=== PATIENT | female | born 1980 | race Caucasian/White ===

== ENCOUNTER 2016-06-26 16:38 | Emergency (ER) | payer BC ==
[2016-06-26] MEDS ORDERED: KETOROLAC TROMETHAMINE 30 MG/1 ML VIAL IVPUSH ONE ×2 (16:45→19:18)
[2016-06-26] MEDS ORDERED: SODIUM CHLORIDE 1,000 ML IV STA (16:45)
--- NOTE | 2016-06-26 16:45 | PDOC ---
Rapid Medical Evaluation Time Seen by Provider: 06/26/16 16:44 Medical Evaluation: Allergies Allergy/AdvReac Type Severity Reaction Status Date / Time No Known Allergies Allergy Verified 06/26/16 16:43 06/26/16 16:53 36 year old female with history of kidney stones (last summer 2015, doesnt recall passing that stone, s/p lithotripsy 1999) presents with 3 days of worsening left flank pain. Appears very uncomfortable. Left CVA tenderness to gentle palpation. -UA/culture/urine -Basic labs -Toradol 30mg IVP, IVF -To Main ED for further evaluation
[2016-06-26 16:47] VITALS: TEMP 98.1; BMI 26.0
[2016-06-26] MEDS ORDERED: KETOROLAC TROMETHAMINE 30 MG/1 ML VIAL ONE (17:11)
[2016-06-26 17:25] LABS: BASOPHIL 0.9 % (0-2.0); EOSINOPHIL 1.9 % (0-4.5); MCH 28.4 pg (25.7-33.7); MCHC 33.4 g/dl (32.0-36.0); MEAN PLT VOLUME 8.5 fl (7.5-11.1); NEUTROPHILS 52.4 % (42.8-82.8); PLATELET COUNT 272 K/MM3 (134-434); RDW 13.9 % (11.6-15.6); WHITE BLOOD COUNT 8.2 K/mm3 (4.0-10.0)
[2016-06-26 17:32] LABS: URINE APPEARANCE CLEAR; URINE BILIRUBIN NEGATIVE (NEGATIVE); URINE BLOOD NEGATIVE (NEGATIVE); URINE COLOR YELLOW; URINE GLUCOSE (UA) NEGATIVE (NEGATIVE); URINE KETONE NEGATIVE (NEGATIVE); URINE NITRITE NEGATIVE (NEGATIVE); URINE PROTEIN NEGATIVE (NEGATIVE); URINE UROBILINOGEN 2.0 E.U/dl E.U./dl (0.2-1.0)
[2016-06-26 17:34] LABS: URINE LEUK ESTERASE TRACE (NEGATIVE)
[2016-06-26 17:48] LABS: CALCIUM OXALATE CRYSTALS RARE /hpf (NONE SEEN); URINE MUCUS RARE; URINE RBC 9 /hpf (0-3); URINE WBC 7 /hpf (3-5)
[2016-06-26 17:51] LABS: ALBUMIN 3.5 g/dl (3.4-5.0); ALK PHOS 58 U/L (45-117); ANION GAP 8 (8-16); BILIRUBIN,TOTAL 0.5 mg/dL (0.2-1.0); CALCIUM 8.5 mg/dL (8.5-10.1); CO2 27 mmol/L (21-32); CREATININE 0.7 mg/dL (0.55-1.02); GLUCOSE,RANDOM 85 mg/dL (74-106); SGOT/AST 14 U/L (15-37); SGPT/ALT 15 U/L (12-78)
--- NOTE | 2016-06-26 17:55 | PDOC ---
History of Present Illness - General Chief Complaint: Pain Stated Complaint: BACK PAIN Time Seen by Provider: 06/26/16 16:44 History Source: Patient Exam Limitations: No Limitations - History of Present Illness Travel History: No Initial Comments: 06/26/16 17:45 36-year-old female with history of kidney stones presents to the ED with complaints of left flank and left back pain worsening since yesterday now associated with urinary frequency and dark urine. Patient denies irregular menses, recent UTI, abdominal distention, fever or chills. Patient states does not recall the recent urology she followed up with numerous years ago but has never received any surgical intervention. Timing/Duration: reports: getting worse Quality: reports: moderate, sharpness, stabbing Abdominal Pain Onset Location: reports: flank (left) Pain Radiation: reports: no radiation Aggravating Factors: improves with: Voiding Alleviating Factors: improves with: None Past History - Past Medical History Allergies/Adverse Reactions: Allergies Allergy/AdvReac Type Severity Reaction Status Date / Time clindamycin Allergy Verified 06/26/16 17:39 Home Medications: Ambulatory Orders Albuterol Sulfate Inhaler - [Ventolin HFA Inhaler -] 1 - 2 inh IH PRN PRN Budesonide/Formeterol Fumarate [SYMBICORT 80/4.5mcg -] 1 inh PO BID #1 cannister 08/08/15 Tamsulosin HCl [Flomax] 0.4 mg PO DAILY #7 cap.er.24h 06/26/16 Asthma: Yes Kidney Stones: Yes - Reproductive History LMP Normal: Yes Is Patient Now?: No - Immunization History Immunization Up to Date: Yes - Psycho/Social/Smoking Cessation Hx Anxiety: No Suicidal Ideation: No Smoking Status: No Smoking History: Former smoker Have you smoked in the past 12 months: Yes Number of Cigarettes Smoked Daily: 3 If you are a former smoker, when did you quit?: 3 months ago Information on smoking cessation initiated: No Hx Alcohol Use: No Drug/Substance Use Hx: No Substance Use Type: None Patient Lives Alone: No Lives with/in: spouse/SO Review of Systems - Review of Systems Able to Perform ROS?: Yes Constitutional: No: Chills, Fever HEENTM: No: Symptoms Reported Respiratory: No: Symptoms reported Cardiac (ROS): No: Symptoms Reported ABD/GI: No: Constipated, Diarrhea, Nausea, Vomiting : No: Symptoms Reported Musculoskeletal: No: Symptoms Reported Integumentary: No: Symptoms Reported Neurological: No: Symptoms reported Endocrine: No: Symptoms Reported Hematologic/Lymphatic: No: Symptoms Reported *Physical Exam - Vital Signs Last Vital Signs Temp Pulse Resp BP Pulse Ox 98.1 F 85 20 129/75 100 06/26/16 16:44 06/26/16 16:44 06/26/16 16:44 06/26/16 16:44 06/26/16 16:44 - Physical Exam General Appearance: Yes: Nourished, Appropriately Dressed. No: Apparent Distress HEENT: positive: EOMI, YAIR. negative: Pale Conjunctivae Neck: positive: Supple Respiratory/Chest: positive: Lungs Clear, Normal Breath Sounds. negative: Respiratory Distress, Accessory Muscle Use Cardiovascular: positive: Regular Rhythm, Regular Rate. negative: Murmur Gastrointestinal/Abdominal: positive: Soft. negative: Tenderness Musculoskeletal: positive: CVA Tenderness (L) Extremity: positive: Normal Capillary Refill. negative: Pedal Edema Integumentary: positive: Normal Color, Warm, Moist Neurologic: positive: Motor Strength 5/5 ED Treatment Course - LABORATORY CBC & Chemistry Diagram: 06/26/16 16:30 06/26/16 16:30 - ADDITIONAL ORDERS Additional order review: Laboratory Results 06/26/16 16:45 Urine Color Yellow Urine Appearance Clear Urine pH 6.0 Ur Specific [place] 1.021 Urine Protein Negative Urine Glucose (UA) Negative Urine Ketones Negative Urine Blood Negative Urine Nitrite Negative Urine Bilirubin Negative Urine Urobilinogen 2.0 e.u/dl H Ur Leukocyte Esterase Trace H Urine HCG, Qual Negative 06/26/16 16:30 RBC 4.63 MCV 85.0 MCHC 33.4 RDW 13.9 MPV 8.5 Neutrophils % 52.4 D Lymphocytes % 31.7 D Monocytes % 13.1 H Eosinophils % 1.9 D Basophils % 0.9 - RADIOLOGY Radiology Studies Ordered: Category Date Time Status KIDNEY / RENAL US [US] Stat Ultrasound 06/26/16 17:43 Ordered - Medications Given in the ED: ED Medications Discontinued Medications Generic Name Dose Route Start Last Admin Trade Name Freq PRN Reason Stop Dose Admin Sodium Chloride 1,000 mls @ 1,000 mls/hr 06/26/16 16:45 06/26/16 17:10 Normal Saline - IV 06/26/16 17:44 1,000 mls/hr ASDIR STA Administration Ketorolac Tromethamine 30 mg 06/26/16 16:45 06/26/16 17:10 Toradol Injection - IVPUSH 06/26/16 16:46 30 mg ONCE ONE Administration Medical Decision Making - Medical Decision Making 06/26/16 17:56 Patient with history of kidney stones presents with urinary frequency, dark urine, and left flank pain. Patient Had CVA tenderness. Patient ordered for labs , urine and IV fluids. Patient also ordered for kidney ultrasound since had her last CT done done in 2014. 06/26/16 18:30 Laboratory Tests 06/26/16 06/26/16 06/26/16 16:30 16:30 16:45 WBC 8.2 Hgb 13.1 Hct 39.4 Plt Count 272 Neutrophils % 52.4 D Sodium 139 Potassium 3.7 Chloride 104 Carbon Dioxide 27 Anion Gap 8 BUN 11 D Random Glucose 85 AST 14 L D ALT 15 Urine Ketones Negative Urine Blood Negative Urine Nitrite Negative Urine Urobilinogen 2.0 e.u/dl H Ur Leukocyte Esterase Trace H Urine RBC 9 Urine WBC 7 06/26/16 19:08 Ultrasound shows multiple bilateral nonobstructing renal calculi. Kidneys otherwise are unremarkable. Patient be discharged home to follow-up with her urologist and PCP. Patient also will be given prescription for Flomax. Urine culture sent. *DC/Admit/Observation/Transfer Diagnosis at time of Disposition: Renal calculi - Discharge Dispostion Disposition: HOME Condition at time of disposition: Improved - Prescriptions Prescriptions: Tamsulosin HCl [Flomax] 0.4 mg PO DAILY #7 cap.er.24h - Referrals Referrals: Toney Centeno MD [Staff Physician] - - Patient Instructions Printed Discharge Instructions: DI for Kidney Stones Additional Instructions: Please take Flomax as prescribed and drink plenty of fluids. Please follow-up with referred urologist and return to ED if symptoms worsen.
[2016-06-26 19:23] VITALS: BP 125/80; PULSE 73
== END 2016-06-26 19:24 | disposition home or self-care (01) ==
LOC: JER 16:38
PROC: 3E0333Z Introduction of Anti-inflammatory into Peripheral Vein, Percutaneous Approach (ICD-10-PCS; principal; 2016-06-26)
PROC: 3E0337Z Introduction of Electrolytic and Water Balance Substance into Peripheral Vein, Percutaneous Approach (ICD-10-PCS; 2016-06-26)
DX: N23 Unspecified renal colic (principal); Z87.442 Personal history of urinary calculi; J45.909 Unspecified asthma, uncomplicated; Z87.891 Personal history of nicotine dependence
CPT/HCPCS: 36415; 76775-TC; 80053; 81003; 81015; 84703; 85025; 87086; 99283-25

== ENCOUNTER 2017-05-20 17:48 | Emergency (ER) | payer BC ==
[2017-05-20 17:56] VITALS: BP 115/68; PULSE 84; TEMP 98; BMI 28.5
--- NOTE | 2017-05-20 17:56 | PDOC ---
Rapid Medical Evaluation Time Seen by Provider: 05/20/17 17:54 Medical Evaluation: Allergies Allergy/AdvReac Type Severity Reaction Status Date / Time clindamycin Allergy Verified 06/26/16 17:39 05/20/17 17:54 The patient presents with a chief complaint of: [Back pain, blood in the urine, h/o kidney stones. ] I have performed a brief in-person evaluation of this patient. Pertinent physical exam findings: vss, [Left CVA tenderness. ] I have ordered the following: [UA, UC, Urine preg] The patient will proceed to the ED for further evaluation. Discharge Disposition - Diagnosis Hematuria, Back pain - Referrals - Patient Instructions - Post Discharge Activity
[2017-05-20] MEDS ORDERED: TAMSULOSIN HCL 0.4 MG CAP.ER.24H (FP) PO ONE (18:26)
[2017-05-20] MEDS ORDERED: KETOROLAC TROMETHAMINE 30 MG/1 ML VIAL IVPUSH ONE (18:26)
[2017-05-20] MEDS ORDERED: SODIUM CHLORIDE 1,000 ML IV STA (18:27)
[2017-05-20] MEDS ORDERED: TAMSULOSIN HCL 0.4 MG CAP.ER.24H (FP) ONE (18:29)
[2017-05-20] MEDS ORDERED: KETOROLAC TROMETHAMINE 30 MG/1 ML VIAL ONE (18:29)
[2017-05-20 18:31] LABS: URINE APPEARANCE SLCLOUDY; URINE BILIRUBIN NEGATIVE (NEGATIVE); URINE BLOOD 3+ (NEGATIVE); URINE COLOR RED; URINE GLUCOSE (UA) NEGATIVE (NEGATIVE); URINE KETONE NEGATIVE (NEGATIVE); URINE LEUK ESTERASE NEGATIVE (NEGATIVE); URINE NITRITE NEGATIVE (NEGATIVE); URINE UROBILINOGEN NEGATIVE mg/dL (0.2-1.0)
[2017-05-20] MEDS ORDERED: ONDANSETRON 4 MG/2 ML VIAL ONE (18:34)
[2017-05-20 18:36] LABS: HCG,QUALITATIVE URINE NEGATIVE; URINE PROTEIN 1+ (NEGATIVE)
[2017-05-20 18:49] LABS: EPI CELLS RARE /HPF (FEW); URINE BACTERIA RARE /hpf (NONE SEEN); URINE MUCUS RARE
[2017-05-20 18:55] LABS: BASO % 0.6 % (0-2.0); EOS % 1.2 % (0-4.5); HEMATOCRIT 39.4 % (32.4-45.2); HEMOGLOBIN 13.1 GM/dL (10.7-15.3); LYMPH % 51.5 % (8-40); MCHC 33.3 g/dl (32.0-36.0); MEAN CELL VOLUME 84.1 fl (80-96); MEAN PLT VOLUME 8.5 fl (7.5-11.1); MONO % 16.4 % (3.8-10.2); NEUT % 30.3 % (42.8-82.8); PLATELET COUNT 269 K/MM3 (134-434); RBC 4.69 M/mm3 (3.60-5.2); RDW 13.8 % (11.6-15.6)
--- NOTE | 2017-05-20 19:15 | PDOC ---
History of Present Illness - General History Source: Patient Exam Limitations: No Limitations - History of Present Illness Initial Comments: 05/20/17 19:15 The patient is a 36 year old female, with a significant past medical history of kidney stones(history of Lithotri[place] [address] Grant), who presents to the emergency department with left flank pain and blood in the urine since yesterday afternoon. Patient reports her pain is localized to the left flank and is nonradiating in nature. She reports her pain is exacerbated with movement. This morning, the patients reports associated nausea but denies any vomiting, diarrhea, or constipation. She denies any dysuria, frequency, or urgency. While at work at [employer] office, patient reports one episode of hematuria. Patient reports telling MALTER OPERATOR Dippan her symptoms, who recommended the patient have an US in the office. US preliminary results suggested a 6mm stone, with partial hydronephrosis. Patient denies any fever or chills. She denies any recent travel or sick contacts. Allergies: Clindamycin Past Surgical History: Lithotripsy(1999) Social History: Non smoker. No ETOH or recreational drug use. <Ne Tee - Last Filed: 05/20/17 21:22> <Ivanna Alegre - Last Filed: 05/20/17 23:47> - General Chief Complaint: Pain, Acute Stated Complaint: PAIN Time Seen by Provider: 05/20/17 17:54 Past History <Ne Tee - Last Filed: 05/20/17 21:22> - Past Medical History Asthma: Yes COPD: No Kidney Stones: Yes - Immunization History Immunization Up to Date: Yes - Suicide/Smoking/Psychosocial Hx Smoking Status: No Smoking History: Never smoked Have you smoked in the past 12 months: Yes Number of Cigarettes Smoked Daily: 3 If you are a former smoker, when did you quit?: 3 months ago Information on smoking cessation initiated: No Hx Alcohol Use: No Drug/Substance Use Hx: No Substance Use Type: None <Ivanna Alegre - Last Filed: 05/20/17 23:47> - Past Medical History Allergies/Adverse Reactions: Allergies Allergy/AdvReac Type Severity Reaction Status Date / Time clindamycin Allergy Verified 05/20/17 17:56 Home Medications: Ambulatory Orders Albuterol Sulfate Inhaler - [Ventolin HFA Inhaler -] 1 - 2 inh IH PRN PRN Budesonide/Formeterol Fumarate [SYMBICORT 80/4.5mcg -] 1 inh PO BID #1 cannister 08/08/15 Ketorolac Tromethamine [Toradol] 10 mg PO Q6H #12 tablet 05/20/17 Moxifloxacin HCl 400 mg PO DAILY 05/20/17 Prednisone 10 mg PO DAILY 05/20/17 Sulfamethoxazole/Trimethoprim [Bactrim Ds -] 1 tab PO BID #10 tablet 05/20/17 Tamsulosin HCl [Flomax] 0.4 mg PO DAILY #7 capsule 05/20/17 Review of Systems - Review of Systems Able to Perform ROS?: Yes Comments:: 05/20/17 19:15 CONSTITUTIONAL: Absent: fever, no chills, no fatigue EYES: Absent: visual changes ENT: Absent: ear pain, no sore throat CARDIOVASCULAR: Absent: chest pain, no palpitations RESPIRATORY: Absent: cough, no SOB GI: Present: Nausea Absent: abdominal pain, no vomiting, no constipation, no diarrhea GENITOURINARY: Present: dysuria Absent: no frequency, no hematuria MUSKULOSKELETAL: Present: Left flank pain Absent: no arthralgia, no myalgia SKIN: Absent: rash NEURO: Absent: headache <Tee,Giomilsy - Last Filed: 05/20/17 21:22> *Physical Exam - Vital Signs Last Vital Signs Temp Pulse Resp BP Pulse Ox 98.0 F 84 18 115/68 98 05/20/17 17:53 05/20/17 17:53 05/20/17 17:53 05/20/17 17:53 05/20/17 17:53 - Physical Exam Comments: 05/20/17 19:15 GENERAL: Well-appearing, well-nourished. Mild apparent distress. HEENT: Normocephalic, atraumatic. PERRL, EOM intact. CARDIOVASCULAR: Normal S1, S2. Regular rate and rhythm. PULMONARY: Clear to auscultation bilaterally. ABDOMEN: Soft, non-distended, non-tender. BACK: +Left CVA tenderness. No right CVA tenderness. No midline tenderness. EXTREMITIES: Normal ROM in all four extremities. No gross deformities. SKIN: Warm, dry. No rash NEUROLOGICAL: No focal neurological deficits. <Ne Tee - Last Filed: 05/20/17 21:22> - Vital Signs Last Vital Signs Temp Pulse Resp BP Pulse Ox 98.0 F 84 18 115/68 98 05/20/17 17:53 05/20/17 17:53 05/20/17 17:53 05/20/17 17:53 05/20/17 17:53 <Ivanna Alegre - Last Filed: 05/20/17 23:47> ED Treatment Course - LABORATORY CBC & Chemistry Diagram: 05/20/17 18:27 05/20/17 18:27 - ADDITIONAL ORDERS Additional order review: Laboratory Results 05/20/17 18:07 Urine Color Red Urine Appearance Slcloudy Urine pH 6.0 Ur Specific [place] 1.009 Urine Protein 1+ H Urine Glucose (UA) Negative Urine Ketones Negative Urine Blood 3+ H Urine Nitrite Negative Urine Bilirubin Negative Urine Urobilinogen Negative Ur Leukocyte Esterase Negative Urine WBC (Auto) 129 Urine RBC (Auto) 1159 Ur Epithelial Cells Rare Urine Bacteria Rare Urine Mucus Rare Urine HCG, Qual Negative 05/20/17 18:27 RBC 4.69 MCV 84.1 MCHC 33.3 RDW 13.8 MPV 8.5 Neutrophils % 30.3 L D Lymphocytes % 51.5 H D Monocytes % 16.4 H Eosinophils % 1.2 Basophils % 0.6 - RADIOLOGY Radiograph Interpretation: 05/20/17 21:22 EXAM: US Left Kidney INTERPRETED BY: Dr. Barth REVIEWED BY: Dr. Alegre IMPRESSION: In comparison to a previous ultrasound exam of 06/26/2016 there is possible interval development of mild left hydronephrosis. No interval studies are available at this facility for direct comparison. A 0.6 cm nonobstructing left renal mid pole calculus is noted. The ureters cannot be visualized due to obscuring bowel gas. Several small nonobstructing right renal calculi are visualized. The kidneys appear unremarkable in position, cortical thickness, echogenicity and size. Each kidney measures approximately 10 cm in length. SUMMARY: Possible mild left hydronephrosis as discussed above. Bilateral nephrolithiasis. - Medications Given in the ED: ED Medications Discontinued Medications Generic Name Dose Route Start Last Admin Trade Name Freq PRN Reason Stop Dose Admin Ketorolac Tromethamine 30 mg 05/20/17 18:26 02/12/18 18:41 Toradol Injection - IVPUSH 05/20/17 18:27 30 mg ONCE ONE Administration Tamsulosin HCl 0.4 mg 05/20/17 18:26 05/20/17 18:41 Flomax - PO 05/20/17 18:27 0.4 mg ONCE ONE Administration <Ne Tee - Last Filed: 05/20/17 21:22> - LABORATORY CBC & Chemistry Diagram: 05/20/17 18:27 05/20/17 18:27 - ADDITIONAL ORDERS Additional order review: Laboratory Results 05/20/17 18:07 Urine Color Red Urine Appearance Slcloudy Urine pH 6.0 Ur Specific [place] 1.009 Urine Protein 1+ H Urine Glucose (UA) Negative Urine Ketones Negative Urine Blood 3+ H Urine Nitrite Negative Urine Bilirubin Negative Urine Urobilinogen Negative Ur Leukocyte Esterase Negative Urine WBC (Auto) 129 Urine RBC (Auto) 1159 Ur Epithelial Cells Rare Urine Bacteria Rare Urine Mucus Rare Urine HCG, Qual Negative 05/20/17 18:27 RBC 4.69 MCV 84.1 MCHC 33.3 RDW 13.8 MPV 8.5 Neutrophils % 30.3 L D Lymphocytes % 51.5 H D Monocytes % 16.4 H Eosinophils % 1.2 Basophils % 0.6 - Medications Given in the ED: ED Medications Discontinued Medications Generic Name Dose Route Start Last Admin Trade Name Jaylonq PRN Reason Stop Dose Admin Ketorolac Tromethamine 30 mg 05/20/17 18:26 05/20/17 18:41 Toradol Injection - IVPUSH 05/20/17 18:27 30 mg ONCE ONE Administration Tamsulosin HCl 0.4 mg 05/20/17 18:26 05/20/17 18:41 Flomax - PO 05/20/17 18:27 0.4 mg ONCE ONE Administration <Ivanna Alegre - Last Filed: 05/20/17 23:47> Medical Decision Making - Medical Decision Making 05/20/17 23:45 36-year-old female with a long history of flank pain and kidney stones presents with hematuria, flank pain and nausea. This started early today Urinalysis shows hematuria CBC and chemistries essentially unremarkable. Patient has had multiple CAT scans in the past few years and therefore an ultrasound was obtained to look for [place]. Ultrasound didn't show a 0.6 cm stone in the mid pole of the kidney and some mild hydronephrosis. Patient has seen Dr. Alin chiang in the past several follow-up with him. She was given IV fluids, antiemetics, and pain medications. She did not have any vomiting, fever in the emergency department and would be able to take by mouth medications at home. Patient told to follow-up with the urologist, and to return if she develops persistent nausea and vomiting or worsening pain <Ivanna Alegre - Last Filed: 05/20/17 23:47> *DC/Admit/Observation/Transfer - Attestations Scribe Attestion: 05/20/17 19:16 Documentation prepared by Ne Tee, acting as medical lab scientist for Ivanna Alegre MD. <Ne Tee - Last Filed: 05/20/17 21:22> <Ivanna Alegre - Last Filed: 05/20/17 23:47> Diagnosis at time of Disposition: Renal colic, Renal calculi Hematuria Qualifiers: Hematuria type: unspecified type Qualified Code(s): R31.9 - Hematuria, unspecified - Discharge Dispostion Disposition: HOME Condition at time of disposition: Stable - Prescriptions Prescriptions: Ketorolac Tromethamine [Toradol] 10 mg PO Q6H #12 tablet Sulfamethoxazole/Trimethoprim [Bactrim Ds -] 1 tab PO BID #10 tablet Tamsulosin HCl [Flomax] 0.4 mg PO DAILY #7 capsule - Referrals Referrals: Homar Grant MD [Staff Physician] - - Patient Instructions Printed Discharge Instructions: Hydronephrosis -- Adult, DI for Kidney Stones, DI for Flank Pain Additional Instructions: please machine operator picker your medications at the [facility] on [facility] Follow up with the urologist Return for worsening symptoms
[2017-05-20 19:26] LABS: CHLORIDE 102 mmol/L (98-107); POTASSIUM 3.7 mmol/L (3.5-5.1); SODIUM 138 mmol/L (136-145)
[2017-05-20 19:55] LABS: ALBUMIN 3.5 g/dl (3.4-5.0); ALK PHOS 69 U/L (45-117); ANION GAP 9 (8-16); BILIRUBIN,TOTAL 0.3 mg/dL (0.2-1.0); BLOOD UREA NITROGEN 16 mg/dL (7-18); CALCIUM 7.9 mg/dL (8.5-10.1); CO2 27 mmol/L (21-32); CREATININE 0.8 mg/dL (0.55-1.02); GLUCOSE,RANDOM 75 mg/dL (74-106); SGOT/AST 13 U/L (15-37); SGPT/ALT 21 U/L (12-78)
[2017-05-20] MEDS ORDERED: MORPHINE SULFATE 10 MG/1 ML *VIAL ONE (20:50)
== END 2017-05-20 22:50 | disposition home or self-care (01) ==
LOC: JER 17:48
PROC: 3E0333Z Introduction of Anti-inflammatory into Peripheral Vein, Percutaneous Approach (ICD-10-PCS; principal; 2017-05-20)
DX: N13.2 Hydronephrosis with renal and ureteral calculous obstruction (principal); Z87.442 Personal history of urinary calculi
CPT/HCPCS: 36415; 76775-TC; 80053; 81003; 81015; 84703; 85025; 87086; 99283-25

== ENCOUNTER 2017-05-23 11:43 | Day surgery (SDC) | payer BC ==
[2017-05-23 12:36] VITALS: BMI 28.5
[2017-05-23] MEDS ORDERED: SODIUM CHLORIDE 1,000 ML IV STA (13:29)
[2017-05-23] MEDS ORDERED: morphine CARPU-JECT 4 MG/1 ML DISP.SYRIN IVPUSH ONE (13:29)
[2017-05-23] MEDS ORDERED: KETOROLAC TROMETHAMINE 30 MG/1 ML VIAL IVPUSH ONE (13:29)
[2017-05-23] MEDS ORDERED: ONDANSETRON 4 MG/2 ML VIAL IVPUSH ONE ×2 (13:29→16:41)
[2017-05-23] MEDS ORDERED: MORPHINE SULFATE 10 MG/1 ML *VIAL ONE (13:48)
[2017-05-23] MEDS ORDERED: KETOROLAC TROMETHAMINE 30 MG/1 ML VIAL ONE ×2 (13:48→23:52)
[2017-05-23] MEDS ORDERED: ONDANSETRON 4 MG/2 ML VIAL ONE ×2 (13:49→17:41)
--- NOTE | 2017-05-23 13:53 | PDOC ---
History of Present Illness - General Chief Complaint: Pain, Acute Stated Complaint: NAUSEA, ABD PAIN Time Seen by Provider: 05/23/17 13:24 History Source: Patient Exam Limitations: No Limitations - History of Present Illness Initial Comments: 05/23/17 13:48 Patient is a 36F with history asthma here today complaining of left flank pain. She was seen three days ago for left flank pain, ua was positive for blood and ultrasound showed bilateral kidney stones with mild hydronephrosis on the left. She states that her pain did not fully resolve and has been worsening for the past few days. She endorses nausea and non-billious, non-bloody vomit. She endorses subjective fevers, chills and headaches. She denies pain with urination. Past History - Past Medical History Allergies/Adverse Reactions: Allergies Allergy/AdvReac Type Severity Reaction Status Date / Time clindamycin Allergy Verified 05/23/17 12:31 Home Medications: Ambulatory Orders Ketorolac Tromethamine [Toradol] 10 mg PO Q6H #12 tablet 05/20/17 Sulfamethoxazole/Trimethoprim [Bactrim Ds -] 1 tab PO BID #10 tablet 05/20/17 Tamsulosin HCl [Flomax] 0.4 mg PO DAILY #7 capsule 05/20/17 Asthma: Yes COPD: No Kidney Stones: Yes - Immunization History Immunization Up to Date: Yes - Suicide/Smoking/Psychosocial Hx Smoking Status: No Smoking History: Never smoked Have you smoked in the past 12 months: Yes Number of Cigarettes Smoked Daily: 3 If you are a former smoker, when did you quit?: 20yrs Information on smoking cessation initiated: No Hx Alcohol Use: No Drug/Substance Use Hx: No Substance Use Type: None Review of Systems - Review of Systems Comments:: 05/23/17 13:54 GENERAL/CONSTITUTIONAL: Positive for fever or chills. HEAD, EYES, EARS, NOSE AND THROAT: No change in vision. No sore throat. CARDIOVASCULAR: No chest pain or shortness of breath RESPIRATORY: No cough, wheezing, or hemoptysis. GASTROINTESTINAL: Positive for nausea and vomiting. Negative for diarrhea or constipation. GENITOURINARY: Positive for blood in urine. MUSCULOSKELETAL: No joint or muscle swelling or pain. No neck or back pain. SKIN: No rash NEUROLOGIC: No headache, vertigo, loss of consciousness, or change in strength/ sensation. ENDOCRINE: No increased thirst. No abnormal weight change HEMATOLOGIC/LYMPHATIC: No anemia, easy bleeding, or history of blood clots. ALLERGIC/IMMUNOLOGIC: No hives or skin allergy. *Physical Exam - Vital Signs Last Vital Signs Temp Pulse Resp BP Pulse Ox 97.9 F 100 H 18 126/70 96 05/23/17 12:31 05/23/17 12:31 05/23/17 12:31 05/23/17 12:31 05/23/17 12:31 - Physical Exam Comments: 05/23/17 13:55 GENERAL: Awake, alert, and fully oriented, tearful, holding left side, holding still HEAD: No signs of trauma, normocephalic, atraumatic EYES: PERRLA, EOMI, sclera anicteric, conjunctiva clear ENT: Auricles normal inspection, hearing grossly normal, nares patent, oropharynx clear without exudates. Moist mucosa NECK: Normal ROM, supple, no lymphadenopathy, JVD, or masses LUNGS: No distress, speaks full sentences, clear to auscultation bilaterally HEART: Regular rate and rhythm, normal S1 and S2, no murmurs, rubs or gallops, peripheral pulses normal and equal bilaterally. ABDOMEN: Positive for suprapubic tenderness. Positive left sided CVA tenderness. No guarding, no rebound. No masses EXTREMITIES: Normal inspection, Normal range of motion, no edema. No clubbing or cyanosis. NEUROLOGICAL: Cranial nerves II through XII grossly intact. Normal speech, normal gait, no focal sensorimotor deficits SKIN: Warm, Dry, normal turgor, no rashes or lesions noted. ED Treatment Course - LABORATORY CBC & Chemistry Diagram: 05/23/17 13:33 05/23/17 13:33 - RADIOLOGY Radiology Studies Ordered: Category Date Time Status SPIRAL- RENAL-STONE CT [CT] Stat CT Scan 05/23/17 13:34 Ordered Medical Decision Making - Medical Decision Making 05/23/17 13:56 Patient is a 36F with history of asthma here today with left sided flank pain. Diagnosed with kidney stones 3 days ago, presentation consistent with kidney stone today. Concerned for possibly pyelonephritis given patient's CVA tenderness, nausea, and vomiting, but patient is afebrile. Will evaluate further with cbc, cmp, ua, upreg, spiral ct. Will treat with morphine, toradol, fluids. 05/23/17 15:54 Laboratory Tests 05/20/17 05/23/17 05/23/17 18:27 13:33 13:33 WBC 10.3 H Hgb 12.9 Hct 38.8 Plt Count 255 BUN Creatinine 0.8 Urine Blood Negative Urine Bilirubin Negative Ur Leukocyte Esterase Negative Urine HCG, Qual 05/23/17 05/23/17 13:33 13:33 WBC Hgb Hct Plt Count BUN 13 Creatinine 1.5 H Urine Blood Urine Bilirubin Ur Leukocyte Esterase Urine HCG, Qual Negative CMP notable for Cr bump from 0.8 to 1.5. CBC shows small leukocytosis. Upreg negative. UA does not show signs of infection. 05/23/17 16:46 Dr Ku accepted admission to med/surg. 05/23/17 16:49 Will go to OR tonight per Dr Iniguez. 05/23/17 17:49 Will now go to OR tomorrow, will make NPO after midnight. *DC/Admit/Observation/Transfer Diagnosis at time of Disposition: Nephrolithiasis - Discharge Dispostion Condition at time of disposition: Stable Admit: Yes - Referrals Referrals: Aishwarya Ku MD [Primary Care Provider] - - Patient Instructions - Post Discharge Activity
[2017-05-23 14:05] LABS: BASO % 0.9 % (0-2.0); EOS % 1.9 % (0-4.5); HEMATOCRIT 38.8 % (32.4-45.2); HEMOGLOBIN 12.9 GM/dL (10.7-15.3); LYMPH % 20.4 % (8-40); MCH 28.1 pg (25.7-33.7); MCHC 33.3 g/dl (32.0-36.0); MEAN CELL VOLUME 84.4 fl (80-96); MEAN PLT VOLUME 8.1 fl (7.5-11.1); MONO % 13.4 % (3.8-10.2); NEUT % 63.4 % (42.8-82.8); PLATELET COUNT 255 K/MM3 (134-434); RBC 4.59 M/mm3 (3.60-5.2); RDW 13.8 % (11.6-15.6); WHITE BLOOD COUNT 10.3 K/mm3 (4.0-10.0)
[2017-05-23 14:08] LABS: URINE APPEARANCE SLCLOUDY; URINE BILIRUBIN NEGATIVE (NEGATIVE); URINE BLOOD NEGATIVE (NEGATIVE); URINE COLOR YELLOW; URINE GLUCOSE (UA) NEGATIVE (NEGATIVE); URINE KETONE TRACE (NEGATIVE); URINE LEUK ESTERASE NEGATIVE (NEGATIVE); URINE NITRITE NEGATIVE (NEGATIVE); URINE PROTEIN NEGATIVE (NEGATIVE)
[2017-05-23 14:18] LABS: INR 1.04 (0.82-1.09); PROTHROMBIN TIME (PATIENT) 11.8 SEC (9.98-11.88)
[2017-05-23 14:34] LABS: ALBUMIN 3.1 g/dl (3.4-5.0); ALK PHOS 65 U/L (45-117); ANION GAP 8 (8-16); BILIRUBIN,TOTAL 0.6 mg/dL (0.2-1.0); BLOOD UREA NITROGEN 13 mg/dL (7-18); CALCIUM 8.3 mg/dL (8.5-10.1); CHLORIDE 104 mmol/L (98-107); CO2 24 mmol/L (21-32); CREATININE 1.5 mg/dL (0.55-1.02); GLUCOSE,RANDOM 72 mg/dL (74-106); SGPT/ALT 16 U/L (12-78); SODIUM 136 mmol/L (136-145); TOT PROT 6.7 g/dl (6.4-8.2)
[2017-05-23 14:54] LABS: POTASSIUM 4.8 mmol/L (3.5-5.1)
[2017-05-23 14:55] LABS: SGOT/AST 24 U/L (15-37)
[2017-05-23] MEDS ORDERED: HYDROmorphone HCL CARPU-JECT 1 MG/1 ML DISP.SYRIN IVPUSH ONE (14:59)
[2017-05-23] MEDS ORDERED: HYDROmorphone HCL CARPU-JECT 1 MG/1 ML DISP.SYRIN ONE (15:09)
--- NOTE | 2017-05-23 15:44 | PDOC ---
Attending Attestation - Resident Resident Name: DianaCodey - ED Attending Attestation I have performed the following: I have examined & evaluated the patient, The case was reviewed & discussed with the resident, I agree w/resident's findings & plan, Exceptions are as noted - HPI HPI: 05/23/17 15:41 36y/o F recently diagnosed renal colic p/w intractable flank pain. no fever. - Physicial Exam PE: 05/23/17 15:43 afebrile L cvat, + left abd discomfort to palpation without guarding - Medical Decision Making 05/23/17 15:43 Patient seen and evaluated with the resident. I agree with the overall evaluation, assessment, and management with the following summary of visit: 36y/o F with intractable renal colic. labs, ua ctap to assess size/location of stone pain control, anti-emetic reassess 05/23/17 16:28 CTAP confirms 6x5mm obstructing L UVJ stone. Still in pain requiring iv opiates. will admit, urology consult.
[2017-05-23] MEDS ORDERED: SODIUM CHLORIDE 1,000 ML IV SCH (23:45)
[2017-05-24] MEDS ORDERED: D5-1/2NS+20 MEQ KCL - 20 MEQ/1,000 ML INFUS.BAG IV SCH (01:00)
[2017-05-24] MEDS ORDERED: HYDROmorphone HCL CARPU-JECT 4 MG/1 ML DISP.SYRIN IVPUSH PRN (01:00)
[2017-05-24] MEDS ORDERED: ACETAMINOPHEN 325 MG TABLET (FP) PO PRN (01:00)
[2017-05-24] MEDS ORDERED: KETOROLAC TROMETHAMINE 30 MG/1 ML VIAL ONE (03:05)
[2017-05-24] MEDS ORDERED: ONDANSETRON 4 MG/2 ML VIAL IVPUSH PRN ×2 (03:07→08:30)
[2017-05-24] MEDS ORDERED: HYDROmorphone HCl/Pf 2 MG/ML VIAL - FOR OR PYXIS USE ONE (03:09)
[2017-05-24] MEDS ORDERED: ONDANSETRON 4 MG/2 ML VIAL ONE (03:10)
[2017-05-24] MEDS: KETOROLAC TROMETHAMINE 30 MG/1 ML VIAL IVPUSH SCH ×2 (03:16)
[2017-05-24] MEDS ORDERED: MIDAZOLAM HCL 2 MG/2 ML SINGLE DOSE VIAL ONE (07:30)
--- NOTE | 2017-05-24 07:38 | CON.GU ---
Consult Consult Specialty:: urology Reason for Consultation:: left renal colic - History of Present Illness Chief Complaint: left upj stone with hydronephrosis History of Present Illness: Patient is a 36 year old female with history of 4-5 days of increasing left flank pain. Patient with severe nausea with vomiting. Patient with sensation of fever and chills and was on PO bactrim. The patient was evaluated in the ER 3 days ago for the initial renal colic and sent home. Patient got progressively worse and was unable to maintain a diet and was in severe distress. Patient has been afebrile and denies dysuria. - History Source History Provided By: Patient, Medical Record Limitations to Obtaining History: No Limitations - Past Medical History ...LMP: 12/14/13 - Alcohol/Substance Use Hx Alcohol Use: No - Smoking History Smoking history: Never smoked Have you smoked in the past 12 months: Yes Aproximately how many cigarettes per day: 3 If you are a former smoker, when did you quit?: 20yrs Home Medications - Allergies Allergies/Adverse Reactions: Allergies Allergy/AdvReac Type Severity Reaction Status Date / Time clindamycin Allergy Verified 05/23/17 12:31 - Home Medications Home Medications: Ambulatory Orders Ketorolac Tromethamine [Toradol] 10 mg PO Q6H #12 tablet 05/20/17 Sulfamethoxazole/Trimethoprim [Bactrim Ds -] 1 tab PO BID #10 tablet 05/20/17 Tamsulosin HCl [Flomax] 0.4 mg PO DAILY #7 capsule 05/20/17 Physical Exam- Vital Signs: Vital Signs Temperature 98.5 F 05/24/17 06:34 Pulse Rate 86 05/24/17 06:34 Respiratory Rate 17 05/24/17 06:34 Blood Pressure 119/69 05/24/17 06:34 O2 Sat by Pulse Oximetry (%) 99 05/24/17 06:34 Constitutional: Yes: Well Nourished, Anxious Eyes: Yes: WNL, Conjunctiva Clear, EOM Intact HENT: Yes: WNL, Atraumatic, Normocephalic Neck: Yes: Supple, Trachea Midline Cardiovascular: Yes: WNL, Regular Rate and Rhythm Respiratory: Yes: WNL, Regular Gastrointestinal: Yes: Soft, Hypoactive Bowel Sounds Renal/: Yes: CVA Tenderness - Left Kidneys: Yes: Flank Pain Left Pelvis: Yes: WNL, Bladder Non Palpable External Genitalia: Yes: WNL Extremities: Yes: WNL Labs: CBC, BMP 05/23/17 13:33 05/23/17 13:33 Imaging - Results Cat Scan: Report Reviewed, Image Reviewed (left hydronephrosis with obtructing 6 +mm upj stone; bilateral non-obstructing stones) Assessment/Plan impression left upj stone with hydronephrosis left renal colic bilateral non-obstructing renal stones plan patient is emergently taken to the OR to correct left renal obstruction due to risk of renal injury and to the inablility to maintain a diet secondary to severe nausea and vomiting.
[2017-05-24] MEDS ORDERED: DEXAMETHASONE SOD PHOSPHATE 4 MG/1 ML VIAL ONE (07:52)
[2017-05-24] MEDS ORDERED: PROPOFOL 20 ML ONE ×2 (07:53→07:58)
[2017-05-24] MEDS ORDERED: LIDOCAINE HCL/PF 2% SDV 5ML VIAL ONE (07:53)
[2017-05-24] MEDS ORDERED: ALBUTEROL SO4 0.083% IH SOL 2.5 MG/3 ML VIAL.NEB. NEB SCH (08:00)
--- NOTE | 2017-05-24 08:23 | OP ---
Operative Note - Note: Operative Date: 05/24/17 Pre-Operative Diagnosis: left upj stone with hydronephrosis Operation: cystoscopy/left retrograde pyelogram/left ureteroscopic stone manipulation/left ureteral stent placement Findings: impacted left ureteral stone with grade 5/5 hydroneophrosis Post-Operative Diagnosis: Other (impacted left upj stone with grade 5/5 hydronephrosis) Anesthesia: General Drains & Tubes with Location: 6 fr/24 cm left ureteral stent
[2017-05-24] MEDS ORDERED: LACTATED RINGERS SOLUTION 1,000 ML IV SCH (08:30)
[2017-05-24] MEDS ORDERED: TAMSULOSIN HCL 0.4 MG CAP.ER.24H (FP) PO SCH (08:30)
[2017-05-24] MEDS ORDERED: PROMETHAZINE HCL 25 MG/1 ML VIAL IVPUSH PRN (08:30)
[2017-05-24] MEDS ORDERED: oxyCODONE HCL 5 MG TABLET PO PRN (08:30)
--- NOTE | 2017-05-24 09:31 | OP ---
DATE OF OPERATION: 05/24/2017 PREOPERATIVE DIAGNOSIS: Left renal colic with severe nausea and vomiting, secondary to left ureteropelvic junction stone. POSTOPERATIVE DIAGNOSIS: Impacted left ureteropelvic junction stone with grade 5/5 hydronephrosis. ATTENDING: Cesar Arnold M.D. ANESTHESIA: General. PROCEDURE: Cystoscopy, left retrograde pyelogram, left ureteroscopic stone manipulation, left ureteral stent placement. OPERATION: The patient was evaluated and found to be in distress, secondary to continued nausea and vomiting. The patient was unable to maintain a diet. In addition, the patient started feeling fevers and chills. Her temperature has been stable. The patient was taken emergently to the operating room in order to unobstruct the left kidney. The CAT scan showed multiple bilateral renal stones. There was a left 6 mm x 5 mm left UPJ stone. Significant hydronephrosis was noted. The patient was explained the procedure. All risks and benefits were explained. The patient accepts the risks and benefits and signed an informed consent. The patient was brought in the operating room and placed in the supine position on the operating room table. General anesthesia and preoperative antibiotics consisting of Levaquin 500 mg was given intravenously. At this point, the patient was placed in the dorsal lithotomy position and prepped and draped in the usual sterile manner. Cystoscopy was performed and there was no evidence of stones or neoplasm within the bladder. The left ureteral orifice was identified. A retrograde pyelogram showed a high-grade left UPJ stone. The stone measured greater than 6 mm. There was no contrast passing proximally past the stone initially. A wire was attempted to be passed; however, this was performed with difficulty. At this point, ureteroscopy was performed to the left of the kidney. The wire had been seen under the fluoroscopy to be safely within the kidney. With the wire in place, ureteroscopy was performed and the stone was seen. The stone was disimpacted using the ureteroscope. However, with the disimpaction, the stone fell into the left lower pole. The urine was cloudy and bloody. It was decided in order to avoid any potential urosepsis, to leave the patient with the stent and schedule an extracorporeal shock wave lithotripsy at a later date. With the wire in place, a 6-Cam[place]onian 24 cm stent was placed utilizing the Seldinger technique under fluoroscopic guidance. No complications were noted. The patient tolerated the procedure very well. The disposition of the patient was to the recovery room. The patient will be evaluated for discharge later today. CESAR ARNOLD M.D. [id number]
--- NOTE | 2017-05-24 09:44 | HP ---
Admitting History and Physical - Admission History of Present Illness: 36F with history asthma here today complaining of left flank pain. She was seen three days ago for left flank pain, ua was positive for blood and ultrasound showed bilateral kidney stones with mild hydronephrosis on the left. She states that her pain did not fully resolve and has been worsening for the past few days. She endorses nausea and non-billious, non-bloody vomit. She endorses subjective fevers, chills and headaches. She denies pain with urination. - Past Medical History Cardiovascular: No: HTN Pulmonary: Yes: Asthma Gastrointestinal: No: Cancer, Ulcerative Colitis Renal/: Yes: Renal Calculi ...LMP: 12/14/13 - Smoking History Smoking history: Never smoked Have you smoked in the past 12 months: Yes Aproximately how many cigarettes per day: 3 If you are a former smoker, when did you quit?: 20yrs - Alcohol/Substance Use Hx Alcohol Use: No Home Medications - Allergies Allergies/Adverse Reactions: Allergies Allergy/AdvReac Type Severity Reaction Status Date / Time clindamycin Allergy Verified 05/23/17 12:31 - Home Medications Home Medications: Ambulatory Orders Ketorolac Tromethamine [Toradol -] 10 mg PO Q6H #12 tablet 05/20/17 Tamsulosin HCl [Flomax -] 0.4 mg PO DAILY #7 capsule 05/20/17 Acetaminophen [Tylenol .Regular Strength -] 650 mg PO Q4H PRN tablet 05/24/17 Albuterol 0.083% Nebulizer Symone [Ventolin 0.083% Nebulizer Soln -] 1 amp NEB RQID amp 05/24/17 Review of Systems - Review of Systems Cardiovascular: reports: No Symptoms Respiratory: reports: No Symptoms Gastrointestinal: reports: Abdominal Pain Genitourinary: reports: Flank Pain Physical Examination Vital Signs: Vital Signs Temperature 98.5 F 05/24/17 06:34 Pulse Rate 73 05/24/17 09:32 Respiratory Rate 20 05/24/17 09:32 Blood Pressure 106/69 05/24/17 09:32 O2 Sat by Pulse Oximetry (%) 99 05/24/17 06:34 Cardiovascular: Yes: Regular Rate and Rhythm Respiratory: Yes: Regular, CTA Bilaterally Gastrointestinal: Yes: Normal Bowel Sounds, Soft. No: Tenderness Labs: CBC, BMP 05/23/17 13:33 02/15/18 13:33 Problem List - Problems (1) Hydronephrosis Assessment/Plan: s/p stenting follow up with uro Code(s): N13.30 - UNSPECIFIED HYDRONEPHROSIS (2) Asthma Assessment/Plan: stable Code(s): J45.909 - UNSPECIFIED ASTHMA, UNCOMPLICATED (3) Renal calculi Assessment/Plan: s/p stenting Code(s): N20.0 - CALCULUS OF KIDNEY (4) Renal insufficiency Assessment/Plan: repeat--if stable then dc home Code(s): N28.9 - DISORDER OF KIDNEY AND URETER, UNSPECIFIED
[2017-05-24 10:09] VITALS: TEMP 98.4
[2017-05-24 10:28] LABS: ANION GAP 7 (8-16); BLOOD UREA NITROGEN 12 mg/dL (7-18); CALCIUM 7.2 mg/dL (8.5-10.1); CHLORIDE 109 mmol/L (98-107); CO2 24 mmol/L (21-32); CREATININE 1.3 mg/dL (0.55-1.02); GLUCOSE,RANDOM 73 mg/dL (74-106); POTASSIUM 4.8 mmol/L (3.5-5.1); SODIUM 140 mmol/L (136-145)
[2017-05-24 11:30] VITALS: BP 109/68; PULSE 64
[2017-05-24] MEDS ORDERED: HEPARIN NA (PORCINE) 5,000 UNITS/ML 1ML VIAL SQ SCH (22:00)
== END 2017-05-24 10:30 | disposition home or self-care (01) ==
LOC: JER 11:43 → UNDOADMIN 16:47 → JERBED 16:47 → JASUSAT 16:47
PROVIDERS: ATTEND Family Medicine
PROC: 0TC78ZZ Extirpation of Matter from Left Ureter, Via Natural or Artificial Opening Endoscopic (ICD-10-PCS; principal; 2017-05-23)
PROC: 0T778DZ Dilation of Left Ureter with Intraluminal Device, Via Natural or Artificial Opening Endoscopic (ICD-10-PCS; 2017-05-23)
DX: N13.2 Hydronephrosis with renal and ureteral calculous obstruction (principal)
CPT/HCPCS: 36415; 74176; 76000-TC-FY; 80048; 80053; 81003; 84703; 85025; 85610; 87086; 94760; 99284-25

== ENCOUNTER 2017-06-03 10:21 | Day surgery (SDC) | payer BC ==
[2017-05-31 11:37] VITALS: BMI 28.5
[2017-06-03] MEDS ORDERED: MIDAZOLAM HCL 2 MG/2 ML SINGLE DOSE VIAL ONE ×2 (12:12→12:50)
--- NOTE | 2017-06-03 13:05 | OP ---
Operative Note - Note: Operative Date: 06/03/17 Pre-Operative Diagnosis: Left Kidney stones Operation: Left ESWL Findings: 8 mm Left lower and 7 mm mid pole stones Surgeon: Can Iniguez Anesthesia: Fractional
[2017-06-03] MEDS ORDERED: ONDANSETRON 4 MG/2 ML VIAL IVPUSH PRN (13:38)
[2017-06-03] MEDS ORDERED: LACTATED RINGERS SOLUTION 1,000 ML IV SCH (13:45)
[2017-06-03 15:46] VITALS: TEMP 98
[2017-06-03] MEDS ORDERED: ONDANSETRON 4 MG/2 ML VIAL IVPUSH ONE (16:25)
[2017-06-03] MEDS ORDERED: ONDANSETRON 4 MG/2 ML VIAL ONE (16:26)
[2017-06-03] MEDS ORDERED: ACETAMINOPHEN 325 MG TABLET (FP) ONE (17:32)
[2017-06-03 18:55] VITALS: BP 126/75; PULSE 77
--- NOTE | 2017-06-04 09:18 | OP ---
DATE OF OPERATION: 06/03/2017 PREOPERATIVE DIAGNOSIS: Left renal stone. POSTOPERATIVE DIAGNOSIS: Left renal stone. PROCEDURE: Left extracorporeal shockwave lithotripsy. ATTENDING: Cesar Arnold MD ANESTHESIA: General. OPERATION: The patient was brought in the operating room and placed in a supine position on the operating room table. Ultrasonography and fluoroscopy were performed. A 9-mm left lower pole stone was identified. At this point, anesthesia and preoperative antibiotics were administered. Extracorporeal shockwave lithotripsy was then started; 2500 impulses at 28 joules of power were administered to the stone with excellent fragmentation noted under realtime ultrasonography and fluoroscopy. No complications were noted. The patient tolerated the procedure very well. CESAR ARNOLD M.D. [id number]
== END 2017-06-03 18:40 | disposition home or self-care (01) ==
LOC: JASU-SURG 10:21
PROVIDERS: ATTEND Urology
PROC: 0TF4XZZ Fragmentation in Left Kidney Pelvis, External Approach (ICD-10-PCS; principal; 2017-06-03 11:45)
DX: N20.0 Calculus of kidney (principal)
CPT/HCPCS: 84703

== ENCOUNTER 2018-08-16 12:24 | Emergency (ER) | payer OTHER ==
[2018-08-16 12:35] VITALS: BMI 30.9
--- NOTE | 2018-08-16 13:12 | PDOC ---
History of Present Illness - General Chief Complaint: Chest Pain Stated Complaint: SENT BY URGENT CARE / CHEST PAIN Time Seen by Provider: 08/16/18 12:49 History Source: Patient Exam Limitations: No Limitations - History of Present Illness Initial Comments: 08/16/18 13:30 38 yo F with a hx of asthma and nephrolithiasis presents to the emergency department with chest pain that has been ongoing for 6 days with new quality radiation to the left shoulder starting this morning. Per the patient, the pain began abruptly on Saturday with associative headaches and right calf pain. She states that the pain occurs when she breathes, feels like a sharp stabbing pain , 7/10, with radiation to the left shoulder, and no releiving or aggravating factors. Denies SOB. She denies recent travel, hx of DVT/PE, recent surgery, recent immobilization, and use of OCPs. She endorses familial cardiac history of mother [place] at 64 years of age and former smoker (cessation 04/2018). Denies the following: fever, chills, nausea, vomiting, visual changes, abdominal pain, dysuria, hematuria, diarrhea, hematochezia, melena, and trauma. Allergies: Clindamycin Shx: bilateral tubal ligation Meds: None Social: Denies tobacco, alcohol, and substance abuse. Past History - Past Medical History Allergies/Adverse Reactions: Allergies Allergy/AdvReac Type Severity Reaction Status Date / Time clindamycin Allergy Verified 08/16/18 12:26 Home Medications: Ambulatory Orders Albuterol 0.083% Nebulizer Symone [Ventolin 0.083% Nebulizer Soln -] 1 amp NEB RQID amp 05/24/17 Ibuprofen [Advil -] 200 mg PO QID PRN 05/31/17 Albuterol Sulfate Inhaler - [Ventolin Hfa Inhaler -] 1 - 2 inh PO QID PRN Asthma: Yes Cancer: No Cardiac Disorders: No CVA: No COPD: No CHF: No Dementia: No Diabetes: No GI Disorders: No Disorders: No HTN: No Hypercholesterolemia: No Kidney Stones: Yes Liver Disease: No Seizures: No Thyroid Disease: No - Surgical History Orthopedic Surgery: No - Immunization History Immunization Up to Date: Yes - Suicide/Smoking/Psychosocial Hx Smoking Status: No Smoking History: Former smoker Have you smoked in the past 12 months: Yes Number of Cigarettes Smoked Daily: 3 If you are a former smoker, when did you quit?: apr, 2018 Information on smoking cessation initiated: No Hx Alcohol Use: No Drug/Substance Use Hx: No Substance Use Type: None Hx Substance Use Treatment: No Review of Systems - Review of Systems Able to Perform ROS?: Yes Is the patient limited Nepali proficient: No Constitutional: No: Chills, Diaphoresis, Fever, Weakness HEENTM: No: Eye Pain, Recent change in vision, Ear Pain, Nose Pain, Throat Pain , Mouth Pain Respiratory: No: Cough, Shortness of Breath, Hemoptysis Cardiac (ROS): Yes: Chest Pain, Lightheadedness. No: Palpitations, Syncope, Chest Tightness ABD/GI: No: Constipated, Diarrhea, Nausea, Rectal Bleeding, Vomiting, Tarry Stools : No: Burning, Dysuria, Hematuria, Incontinence Musculoskeletal: Yes: Muscle Pain (right calf pain). No: Back Pain, Joint Pain , Neck Pain Integumentary: No: Bruising, Erythema, Rash Neurological: No: Headache, Numbness, Tingling, Tremors Psychiatric: No: Change in Appetite Endocrine: No: Unexplained Weight Gain Hematologic/Lymphatic: No: Anemia *Physical Exam - Vital Signs Last Vital Signs Temp Pulse Resp BP Pulse Ox 98.3 F 85 18 117/87 98 08/16/18 12:30 08/16/18 12:30 08/16/18 12:30 08/16/18 12:30 08/16/18 12:30 - Physical Exam General Appearance: Yes: Nourished, Appropriately Dressed. No: Apparent Distress, Intoxicated HEENT: positive: EOMI, YAIR, Normal Voice, Symmetrical, Pharynx Normal, Hearing Grossly Normal. negative: Pale Conjunctivae, Scleral Icterus (R), Scleral Icterus (L), Muffled/Hoarse voice, Pharyngeal Erythema, Tonsillar Exudate, Tonsillar Erythema, Nasal Congestion, Rhinorrhea, Excessive drooling Neck: positive: Trachea midline, Supple. negative: Tender, Lymphadenopathy (R) , Lymphadenopathy (L), Tender lateral, Tender midline Respiratory/Chest: positive: Chest Tender (left chest wall), Lungs Clear, Normal Breath Sounds. negative: Respiratory Distress, Accessory Muscle Use, Crackles, Rales, Rhonchi, Stridor, Wheezing Cardiovascular: positive: Regular Rhythm, Regular Rate, S1, S2. negative: Systolic Murmur Gastrointestinal/Abdominal: positive: Normal Bowel Sounds, Flat, Soft. negative : Tender Lymphatic: negative: Adenopathy Musculoskeletal: positive: Normal Inspection. negative: CVA Tenderness, Vertebral Tenderness Extremity: positive: Normal Capillary Refill, Normal Inspection, Normal Range of Motion, Calf Tenderness (right calf tenderness). negative: Tender, Swelling Integumentary: positive: Normal Color, Dry, Warm Neurologic: positive: outside cutter II-XII NML intact, Fully Oriented, Alert, Normal Mood/ Affect, Normal Response, Motor Strength 5/5. negative: EOM Palsy, Facial Droop , Sensory Deficit ED Treatment Course - LABORATORY CBC & Chemistry Diagram: 08/16/18 13:48 08/16/18 13:48 Medical Decision Making - Medical Decision Making 08/16/18 13:46 38 yo F with a hx of asthma and nephrolithiasis presents to the emergency department with chest pain that has been ongoing for 6 days with new quality radiation to the left shoulder starting this morning. Initial vitals: Initial Vital Signs Temp Pulse Resp BP Pulse Ox 98.3 F 85 18 117/87 98 08/16/18 12:30 08/16/18 12:30 08/16/18 12:30 08/16/18 12:30 08/16/18 12:30 Work up: ddx: PE vs ACS vs costochondritis vs pleuritis vs PNA vs pericarditis vs DVT vs msk strain vs cellulitis d-dimer was 0.56 with normal at 0.5 at the urgent care center. EKG from did not show right heart strain. Laboratory Tests 08/16/18 08/16/18 08/16/18 13:48 13:48 13:48 WBC 7.2 RBC 4.77 Hgb 13.2 Hct 40.3 MCV 84.5 MCH 27.8 MCHC 32.9 RDW 13.9 Plt Count 258 MPV 8.4 Absolute Neuts (auto) 4.3 Neutrophils % 60.4 Lymphocytes % 24.0 Monocytes % 12.6 H Eosinophils % 2.3 Basophils % 0.7 Nucleated RBC % 0 Sodium Potassium Chloride Carbon Dioxide Anion Gap BUN Creatinine Est GFR (CKD-EPI)AfAm Est GFR (CKD-EPI)NonAf Random Glucose Calcium Total Bilirubin AST ALT Alkaline Phosphatase Creatine Kinase Troponin I Total Protein Albumin Serum , Qual Negative Urine Color Yellow Urine Appearance Clear Urine pH 5.0 Ur Specific [place] 1.019 Urine Protein Negative Urine Glucose (UA) Negative Urine Ketones Negative Urine Blood Negative Urine Nitrite Negative Urine Bilirubin Negative Urine Urobilinogen 0.2 Ur Leukocyte Esterase Negative 08/16/18 13:48 WBC RBC Hgb Hct MCV MCH MCHC RDW Plt Count MPV Absolute Neuts (auto) Neutrophils % Lymphocytes % Monocytes % Eosinophils % Basophils % Nucleated RBC % Sodium 136 Potassium 4.5 Chloride 106 Carbon Dioxide 24 Anion Gap 6 L BUN 10 Creatinine 0.6 Est GFR (CKD-EPI)AfAm 132.14 Est GFR (CKD-EPI)NonAf 114.01 Random Glucose 74 Calcium 8.8 Total Bilirubin 0.4 AST 17 ALT 17 Alkaline Phosphatase 66 Creatine Kinase 125 Troponin I < 0.02 Total Protein 6.8 Albumin 3.4 Serum , Qual Urine Color Urine Appearance Urine pH Ur Specific [place] Urine Protein Urine Glucose (UA) Urine Ketones Urine Blood Urine Nitrite Urine Bilirubin Urine Urobilinogen Ur Leukocyte Esterase labs within normal limits. CTA of chest is negative for PE. Patient was given IV tylenol for pain relief. She had marked reduction in symptoms. Patient will follow up with PMD within 1 week after discharge for follow up care and management. She was able to ambulate on her own volition. EKG shows no right heart strain NSR without ST elevations or depression. Dispo: Discharge *DC/Admit/Observation/Transfer Diagnosis at time of Disposition: Positive D dimer Chest pain Qualifiers: Chest pain type: unspecified Qualified Code(s): R07.9 - Chest pain, unspecified - Discharge Dispostion Disposition: HOME Decision to Admit order: No - Referrals Referrals: Aishwarya Ku MD [Primary Care Provider] - - Patient Instructions Printed Discharge Instructions: DI for Atypical Chest Pain Additional Instructions: please see your primary medical doctor in 1 week after discharge for follow up care and management. please return to the emergency department if you have worsening symptoms or new concerning symptoms such as shortness of breath, change in quality of chest pain, lightheadness, and fevers, and nausea vomiting. thank you. - Post Discharge Activity Forms/Work/School Notes: Back to Work
[2018-08-16] MEDS ORDERED: ACETAMINOPHEN 1000 MG/100 ML VIAL (NON FORMULARY) IVPB ONE (13:19)
[2018-08-16] MEDS ORDERED: ACETAMINOPHEN INJECTION 100 ML IVPB ONE (13:29)
--- NOTE | 2018-08-16 13:46 | PDOC ---
Documentation entered by Erasmo Holm SCRIBE, acting as scribe for Ace Thakur MD. Ace Thakur MD: This documentation has been prepared by the arnoldo, Erasmo Holm SCRIBE, under my direction and personally reviewed by me in its entirety. I confirm that the documentation accurately reflects all work, treatment, procedures, and medical decision making performed by me. Attending Attestation - Resident Resident Name: Roni Rodriguez - ED Attending Attestation I have performed the following: I have examined & evaluated the patient, The case was reviewed & discussed with the resident, I agree w/resident's findings & plan, Exceptions are as noted - HPI HPI: 08/16/18 13:19 The patient is a 38 year old female with a significant past medical history of renal colic, asthma and kidney stones who presents to the emergency department with chest pain for 6 days. She describes her chest pain as left sided with radiation to her left arm, 7/10 in severity and worsened with deep breath. She reports some associated right leg pain(cramping in her calf) and headache since yesterday. The patient denies any recent long distance travel besides a 4 [address] ride. 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 The patient reports a history of smoking (quit April 2018) . It is noted that the patient has a family history of [place] (her mother at age 64) . The patient denies any other symptoms. She denies any fever, chills, nausea, vomiting, diarrhea, constipation, urinary symptoms, numbness, weakness of tingling sensation, shortness of breath or headache. The patient denies any other complaints. Pt went to urgent care today, where she had a positive D dimer and was sent to ED for further evaluation. - Physicial Exam PE: 08/16/18 13:45 "GENERAL: Awake, alert, and fully oriented, in no acute distress. HEAD: No signs of trauma EYES: PERRLA, EOMI, sclera anicteric, conjunctiva clear ENT: Auricles normal inspection, hearing grossly normal, nares patent, oropharynx clear without exudates. Moist mucosa NECK: Nontender, no stepoffs, Normal ROM, supple, no lymphadenopathy, JVD, or masses LUNGS: Breath sounds equal, clear to auscultation bilaterally. No wheezes, and no crackles HEART: Regular rate and rhythm, normal S1 and S2, no murmurs, rubs or gallops ABDOMEN: Soft, nontender, normoactive bowel sounds. No guarding, no rebound. No masses EXTREMITIES: Normal range of motion, no edema. No clubbing or cyanosis. No cords, erythema, or tenderness NEUROLOGICAL: Cranial nerves II through XII intact. 5/5 strength and sensation in all extremities, Normal speech, normal gait, normal cerebellar function SKIN: Warm, Dry, normal turgor, no rashes or lesions noted. - Medical Decision Making 08/16/18 13:45 38 F with pleuritic CP and calf pain. Positive ddimer at work. Will r/o PE with CTA. - Labs, trop - EKG - CTA chest - Doppler RLE 08/16/18 14:48 EXAM:US/DUPLEX VASCUL IMPRESSION: No evidence of deep venous thrombosis. Reported By: Kelvin Duran MD 08/16/18 15:50 Labs wnl CTA negative for PE Pt is well appearing, with normal vitals. Clinically stable for DC at this time. I discussed the physical exam findings, ancillary test results and final diagnoses with the patient. I answered all of the patient's questions. The patient was satisfied with the care received and felt comfortable with the discharge plan and treatment plan. The patient agrees to follow up with the primary care physician within 24-72 hours.
[2018-08-16 14:19] LABS: BASO % 0.7 % (0-2.0); EOS % 2.3 % (0-4.5); HEMATOCRIT 40.3 % (32.4-45.2); HEMOGLOBIN 13.2 GM/dL (10.7-15.3); MCH 27.8 pg (25.7-33.7); MCHC 32.9 g/dl (32.0-36.0); MEAN CELL VOLUME 84.5 fl (80-96); MEAN PLT VOLUME 8.4 fl (7.5-11.1); MONO % 12.6 % (3.8-10.2); NEUT % 60.4 % (42.8-82.8); PLATELET COUNT 258 K/MM3 (134-434); RBC 4.77 M/mm3 (3.60-5.2); RDW 13.9 % (11.6-15.6); WHITE BLOOD COUNT 7.2 K/mm3 (4.0-10.0)
[2018-08-16 14:20] LABS: URINE APPEARANCE CLEAR; URINE BILIRUBIN NEGATIVE (NEGATIVE); URINE COLOR YELLOW; URINE GLUCOSE (UA) NEGATIVE (NEGATIVE); URINE KETONE NEGATIVE (NEGATIVE); URINE LEUK ESTERASE NEGATIVE (NEGATIVE); URINE NITRITE NEGATIVE (NEGATIVE); URINE PROTEIN NEGATIVE (NEGATIVE); URINE UROBILINOGEN 0.2 mg/dL (0.2-1.0)
[2018-08-16 14:46] LABS: ALBUMIN 3.4 g/dl (3.4-5.0); ALK PHOS 66 U/L (45-117); ANION GAP 6 MMOL/L (8-16); BILIRUBIN,TOTAL 0.4 mg/dL (0.2-1); BLOOD UREA NITROGEN 10 mg/dL (7-18); CALCIUM 8.8 mg/dL (8.5-10.1); CHLORIDE 106 mmol/L (98-107); CO2 24 mmol/L (21-32); CREATININE 0.6 mg/dL (0.55-1.3); GLUCOSE,RANDOM 74 mg/dL (74-106); POTASSIUM 4.5 mmol/L (3.5-5.1); SGOT/AST 17 U/L (15-37); SGPT/ALT 17 U/L (13-61); SODIUM 136 mmol/L (136-145); TOT PROT 6.8 g/dl (6.4-8.2)
[2018-08-16] MEDS ORDERED: SODIUM CHLORIDE 1,000 ML IV STA (15:16)
[2018-08-16 16:08] VITALS: BP 112/82; PULSE 80; TEMP 98
--- NOTE | 2018-08-17 09:41 | EKG ---
Test Reason : Blood Pressure : / mmHG Vent. Rate : 092 BPM Atrial Rate : 092 BPM P-R Int : 124 ms QRS Dur : 066 ms QT Int : 350 ms P-R-T Axes : 069 054 027 degrees QTc Int : 432 ms NORMAL SINUS RHYTHM WITH SINUS ARRHYTHMIA POSSIBLE LEFT ATRIAL ENLARGEMENT BORDERLINE ECG WHEN COMPARED WITH ECG OF 29-JUL-2009 00:22, VENT. RATE HAS INCREASED BY 37 BPM Confirmed by NORMAN BUTCHER, ALESHA ([id number]) on 08/17/2018 9:40:28 AM Referred By: Confirmed By:ALESHA AUSTIN MD
== END 2018-08-16 16:00 | disposition home or self-care (01) ==
LOC: JER 12:24
PROC: 3E033NZ Introduction of Analgesics, Hypnotics, Sedatives into Peripheral Vein, Percutaneous Approach (ICD-10-PCS; principal; 2018-08-16)
DX: R07.9 Chest pain, unspecified (principal)
CPT/HCPCS: 36415; 71275-TC; 80053; 81003; 82550; 84484; 84703; 85025; 87086; 93005; 93010; 93971-TC; 99284-25; J0131

== ENCOUNTER 2018-09-04 12:10 | Emergency (ER) | payer OTHER | END 2018-09-04 14:37 | disposition home or self-care (01) | LOC: JER 12:10 ==

== ENCOUNTER 2019-04-20 18:47 | Emergency (ER) | payer OTHER ==
[2019-04-20 18:52] VITALS: BP 146/83; PULSE 85; TEMP 98.1; BMI 33.1
--- NOTE | 2019-04-20 20:52 | PDOC ---
History of Present Illness - General Chief Complaint: Cold Symptoms Stated Complaint: FLU SYMPTOMS Time Seen by Provider: 04/20/19 20:44 - History of Present Illness Initial Comments: 04/20/19 20:52 38-year-old female without comorbidities presents for evaluation of cough x1 week without systemic symptoms. She does complain of left-sided chest pain that shoots straight through to her back when she coughs Past History - Past Medical History Allergies/Adverse Reactions: Allergies Allergy/AdvReac Type Severity Reaction Status Date / Time clindamycin Allergy Verified 04/20/19 18:52 Home Medications: Ambulatory Orders Albuterol Sulfate Inhaler - [Ventolin Hfa Inhaler -] 1 - 2 inh PO QID PRN Guaifenesin Dm [Mucinex Dm -] 1 tab PO BID #60 tab.er.12h 04/20/19 Asthma: Yes Cancer: No Cardiac Disorders: No CVA: No COPD: No CHF: No Dementia: No Diabetes: No GI Disorders: No Disorders: No HTN: No Hypercholesterolemia: No Kidney Stones: Yes Liver Disease: No Seizures: No Thyroid Disease: No - Surgical History Orthopedic Surgery: No - Immunization History Immunization Up to Date: Yes - Psycho Social/Smoking Cessation Hx Smoking Status: No Smoking History: Never smoked Have you smoked in the past 12 months: Yes Number of Cigarettes Smoked Daily: 3 If you are a former smoker, when did you quit?: apr, 2018 Hx Alcohol Use: No Drug/Substance Use Hx: No Substance Use Type: None Hx Substance Use Treatment: No Review of Systems - Review of Systems Constitutional: No: Fever Respiratory: Yes: Cough Cardiac (ROS): Yes: Chest Pain Musculoskeletal: Yes: Back Pain *Physical Exam - Vital Signs Last Vital Signs Temp Pulse Resp BP Pulse Ox 98.1 F 85 18 146/83 99 04/20/19 18:49 04/20/19 18:49 04/20/19 18:49 04/20/19 18:49 04/20/19 18:49 - Physical Exam 04/20/19 20:52 GENERAL: The patient is awake, alert, and fully oriented, in no acute distress. HEAD: Normal with no signs of trauma. EYES: sclera anicteric, conjunctiva clear. ENT: Ears normal tympanic membranes normal oropharynx clear uvula midline NECK: Normal range of motion LUNGS: Breath sounds equal, clear to auscultation bilaterally. No wheezes, and no crackles. HEART: S1 and S2 without murmur, rub or gallop. ABDOMEN: Soft, nontender, normoactive bowel sounds. No guarding, no rebound. No masses. EXTREMITIES: Normal range of motion, no edema. No clubbing or cyanosis. No cords, erythema, or tenderness. NEUROLOGICAL: Cranial nerves II through XII grossly intact. Normal speech, normal gait. PSYCH: Normal mood, normal affect. SKIN: Warm, Dry, normal turgor, no rashes or lesions noted. ED Treatment Course - RADIOLOGY Radiology Studies Ordered: Category Date Time Status CHEST PA & LAT [RAD] Stat Radiology 04/20/19 20:50 Ordered Medical Decision Making - Medical Decision Making 04/20/19 21:34 EKG and chest x-ray are normal this was reviewed with emergency room attending follow-up with primary care physician Preston for cough Discharge - Discharge Information Problems reviewed: Yes Clinical Impression/Diagnosis: Chest pain, Cough Condition: Stable Disposition: HOME - Admission No - Follow up/Referral Referrals: Aishwarya Ku MD [Primary Care Provider] - - Patient Discharge Instructions Additional Instructions: Please take the Mucinex as directed for cough. Return to the emergency room for worsening symptoms and without fail follow-up with your primary care physician in 2 to 3 days for further evaluation and treatment options. - Post Discharge Activity
--- NOTE | 2019-04-21 12:37 | EKG ---
Test Reason : Blood Pressure : / mmHG Vent. Rate : 071 BPM Atrial Rate : 071 BPM P-R Int : 126 ms QRS Dur : 068 ms QT Int : 386 ms P-R-T Axes : 041 041 023 degrees QTc Int : 419 ms NORMAL SINUS RHYTHM POSSIBLE LEFT ATRIAL ENLARGEMENT BORDERLINE ECG Confirmed by MD CRISTINE, VICTOR HUGO ([id number]) on 04/21/2019 12:36:51 PM Referred By: Confirmed By:VICTOR HUGO COLUNGA MD
== END 2019-04-20 21:49 | disposition home or self-care (01) ==
LOC: JERFT 18:47
DX: R05 Cough (principal); M94.0 Chondrocostal junction syndrome [Tietze]; Z88.1 Allergy status to other antibiotic agents
CPT/HCPCS: 71046-TC-FY; 87804; 93005; 93010; 99282-25

== ENCOUNTER 2019-10-23 16:14 | Emergency (ER) | payer OTHER ==
--- NOTE | 2019-10-23 16:22 | PDOC ---
Rapid Medical Evaluation Time Seen by Provider: 10/23/19 16:18 Medical Evaluation: Allergies Allergy/AdvReac Type Severity Reaction Status Date / Time clindamycin Allergy Verified 04/20/19 18:52 10/23/19 16:19 I have performed a brief in-person evaluation of this patient. CC: left flank pain with hematuria- on Keflex for cellulitis of right foot PE: Left CVAT. Orders: urine, labs, CT Patient will proceed to ED for further evaluation. Discharge Disposition - Diagnosis Flank pain - Referrals - Patient Instructions - Post Discharge Activity
[2019-10-23 16:24] VITALS: BMI 32.8
[2019-10-23 17:31] LABS: EPI CELLS 11 /uL (0-25.1); HYALINE CASTS 0 /uL (0-3.1); PH,URINE 6.5 (5.0-8.0); URINE APPEARANCE CLEAR; URINE BACTERIA 171 /uL (0-1359); URINE BILIRUBIN NEGATIVE (NEGATIVE); URINE COLOR ORANGE; URINE GLUCOSE (UA) NEGATIVE (NEGATIVE); URINE KETONE NEGATIVE (NEGATIVE); URINE LEUK ESTERASE TRACE (NEGATIVE); URINE NITRITE NEGATIVE (NEGATIVE); URINE PROTEIN 1+ (NEGATIVE); URINE UROBILINOGEN 0.2 mg/dL (0.2-1.0); URINE WBC 24 /uL (0-25.8)
[2019-10-23 17:35] LABS: HCG,QUALITATIVE URINE Negative
[2019-10-23 17:38] LABS: BASO % 0.8 % (0-2.0); EOS % 3.8 % (0-4.5); HEMATOCRIT 36.3 % (32.4-45.2); HEMOGLOBIN 12.3 GM/dL (10.7-15.3); LYMPH % 25.4 % (8-40); MCH 28.4 pg (25.7-33.7); MCHC 33.9 g/dl (32.0-36.0); MEAN CELL VOLUME 83.8 fl (80-96); MEAN PLT VOLUME 8.1 fl (7.5-11.1); MONO % 10.6 % (3.8-10.2); NEUT % 59.4 % (42.8-82.8); PLATELET COUNT 314 K/MM3 (134-434); RBC 4.33 M/mm3 (3.60-5.2); RDW 14.1 % (11.6-15.6); WHITE BLOOD COUNT 9.7 K/mm3 (4.0-10.0)
[2019-10-23 18:00] LABS: URINE RBC 419.2 /uL (0-23.9)
[2019-10-23 18:16] LABS: BLOOD UREA NITROGEN 7.8 mg/dL (7-18); CALCIUM 8.8 mg/dL (8.5-10.1); CREATININE 0.7 mg/dL (0.55-1.3); POTASSIUM 3.8 mmol/L (3.5-5.1)
--- NOTE | 2019-10-23 18:46 | PDOC ---
History of Present Illness - General Chief Complaint: Hematuria Stated Complaint: HEMATURIA Time Seen by Provider: 10/23/19 16:18 History Source: Patient Exam Limitations: Clinical Condition - History of Present Illness Initial Comments: 10/23/19 16:41 Patient with past medical history of kidney stones post lithotripsy 10 years ago and right leg cellulitis seen by urgent care this morning started on Keflex antibiotics presented with complaint of hematuria and left flank pain since this afternoon. Patient denies abdominal pain, urinary frequency or urgency. LMP was 2 weeks ago. Reported mild nausea but denies vomiting. Denies fever, chills, chest pain, shortness of breath. Denies any other symptoms Is this a multiple visit Asthma Patient?: No Timing/Duration: 4-6 hours Past History - Medical History Allergies/Adverse Reactions: Allergies Allergy/AdvReac Type Severity Reaction Status Date / Time clindamycin Allergy Verified 10/23/19 16:24 Home Medications: Ambulatory Orders Albuterol Sulfate Inhaler - [Ventolin Hfa Inhaler -] 1 - 2 inh PO QID PRN 06/03/17 Guaifenesin Dm [Mucinex Dm -] 1 tab PO BID #60 tab.er.12h 04/20/19 Ibuprofen [Motrin -] 600 mg PO TID #30 tablet 04/20/19 Ketorolac Tromethamine [Toradol] 10 mg PO Q8H PRN #12 tablet 10/23/19 Tamsulosin HCl [Flomax] 0.4 mg PO DAILY #7 cap.er.24h 10/23/19 Asthma: Yes Cancer: No Cardiac Disorders: No CVA: No COPD: No CHF: No Dementia: No Diabetes: No GI Disorders: No Disorders: No HTN: No Hypercholesterolemia: No Kidney Stones: Yes Liver Disease: No Seizures: No Thyroid Disease: No - Surgical History Orthopedic Surgery: No - Immunization History Immunization Up to Date: Yes - Psycho-Social/Smoking History Smoking Status: No Smoking History: Never smoked Have you smoked in the past 12 months: No Number of Cigarettes Smoked Daily: 3 If you are a former smoker, when did you quit?: apr, 2018 Information on smoking cessation initiated: No - Substance Abuse Hx (Audit-C & DAST Scrn) How often the patient has a drink containing alcohol: Never Score: In Men: 4 or > Positive; In Women: 3 or > Positive: 0 Screen Result (Pos requires Nsg. Audit-10AR): Negative In the last yr the pt used illegal drug/Rx for NonMed reason: No Score: Yes response is considered Positive: 0 Screen Result (Positive result requires Nsg. DAST-10): Negative Review of Systems - Review of Systems Able to Perform ROS?: Yes Is the patient limited Kosovan proficient: No Constitutional: No: Chills, Fever, Malaise HEENTM: No: Symptoms Reported, See HPI, Eye Pain, Blurred Vision, Tearing, Recent change in vision, Double Vision, Cataracts, Ear Pain, Ocular Prothesis, Ear Discharge, Nose Pain, Nose Congestion, Tinnitus, Nose Bleeding, Hearing Loss, Throat Pain, Throat Swelling, Mouth Pain, Dental Problems, Difficulty Swallowing, Mouth Swelling, Other Respiratory: No: Symptoms reported, See HPI, Cough, Orthopnea, Shortness of Breath, SOB with Exertion, SOB at Rest, Stridor, Wheezing, Productive cough, Hemoptysis, Other Cardiac (ROS): No: Symptoms Reported, See HPI, Chest Pain, Edema, Irregular Heart Rate, Lightheadedness, Palpitations, Syncope, Chest Tightness, Other ABD/GI: Yes: Symptoms Reported, See HPI, Nausea. No: Abd. Pain w/ defecation, Blood Streaked Bowels, Constipated, Diarrhea, Difficulty Swallowing, Vomiting, Indigestion, Abdominal cramping : Yes: Symptoms Reported, See HPI, Flank Pain (Left flank pain), Hematuria. No: Burning, Dysuria, Discharge, Frequency, Urgency Musculoskeletal: Yes: See HPI. No: Symptoms Reported, Back Pain, Muscle Weakness Integumentary: Yes: Symptoms Reported, See HPI, Erythema (Cellulitis to top of right foot) Neurological: No: Numbness, Paresthesia, Tingling All Other Systems: Reviewed and Negative *Physical Exam - Vital Signs Last Vital Signs Temp Pulse Resp BP Pulse Ox 98.7 F 97 H 18 131/85 100 10/23/19 16:22 10/23/19 16:22 10/23/19 16:22 10/23/19 16:22 10/23/19 16:22 - Physical Exam 10/23/19 18:45 GENERAL: Well developed, well nourished. Awake and alert. No acute distress. NECK: Supple. Full ROM. CARDIOVASCULAR: Regular rate and rhythm. No murmurs, rubs, or gallops. Distal pulses are 2+ and symmetric. PULMONARY: No evidence of respiratory distress. Lungs clear to auscultation bilaterally. No wheezing, rales or rhonchi. ABDOMINAL: Soft. Mild tenderness to left flank area. Non-distended. No rebound or guarding. No organomegaly. Normoactive bowel sounds. No CVA tenderness MUSCULOSKELETAL Normal range of motion at all joints. Mild limp on left leg due to foot pain from cellulitis and swelling SKIN: Warm and dry. Normal capillary refill. Localized erythema and swelling to metatarsals in toes of 4th-5th metatarsals and toes. No open wounds. NEUROLOGICAL: Alert, awake, appropriate. Gait is normal without ataxia. PSYCHIATRIC: Cooperative. Good eye contact. Appropriate mood General Appearance: Yes: Nourished, Appropriately Dressed. No: Apparent Distress ED Treatment Course - LABORATORY CBC & Chemistry Diagram: 10/23/19 17:16 10/23/19 17:16 - ADDITIONAL ORDERS Additional order review: Laboratory Results 10/23/19 10/23/19 17:16 17:09 Sodium 141 Potassium 3.8 Chloride 105 Carbon Dioxide 27 Anion Gap 9 BUN 7.8 Creatinine 0.7 Est GFR (CKD-EPI)AfAm 124.73 Est GFR (CKD-EPI)NonAf 107.62 Random Glucose 78 Calcium 8.8 Urine Color [place] Urine Appearance Clear Urine pH 6.5 D Ur Specific [place] 1.004 L Urine Protein 1+ H Urine Glucose (UA) Negative Urine Ketones Negative Urine Blood 3+ H Urine Nitrite Negative Urine Bilirubin Negative Urine Urobilinogen 0.2 Ur Leukocyte Esterase Trace Urine WBC (Auto) 24 Urine RBC (Auto) 419.2 Urine Casts (Auto) 0 U Epithel Cells (Auto) 11 Urine Bacteria (Auto) 171 Urine HCG, Qual Negative 10/23/19 17:16 RBC 4.33 MCV 83.8 MCHC 33.9 RDW 14.1 MPV 8.1 Neutrophils % 59.4 Lymphocytes % 25.4 Monocytes % 10.6 H Eosinophils % 3.8 Basophils % 0.8 Medical Decision Making - Medical Decision Making 10/23/19 16:43 Patient with past medical history of kidney stones post lithotripsy 10 years ago and right leg cellulitis seen by urgent care this morning started on Keflex antibiotics presented with complaint of hematuria and left flank pain since this afternoon. Patient denies abdominal pain, urinary frequency or urgency. LMP was 2 weeks ago. Reported mild nausea but denies vomiting. Denies fever, chills, chest pain, shortness of breath. Denies any other symptoms Exam significant for left mild flank pain without guarding or tenderness. No tenderness to rest of stomach. No CVA tenderness. Patient afebrile. Mild localized erythema to dorsum aspect of distal right foot over 4th-5th metatarsals. No open wound to foot. Examination likely kidney stone versus cystitis. Patient currently on Keflex antibiotic for right foot cellulitis. Will do basic blood work and spiral CT to rule out infected kidney stone. Treat based on lab and imaging results 10/23/19 18:50 CT done shows nonobstructing renal stone with 1 in the UVJ. Biggest 4.5 mm. Patient asymptomatic now and stable for discharge on Toradol PRN for pain and Flomax for kidney stone with follow-up with urology. Patient advised to call her urologist Dr. Iniguez on Saturday for follow-up. Patient voiced understanding will follow-up. Patient stable for discharge Discharge - Discharge Information Problems reviewed: Yes Clinical Impression/Diagnosis: Flank pain, Renal calculi, Cellulitis of foot, right Condition: Stable Disposition: HOME - Admission No - Additional Discharge Information Prescriptions: Tamsulosin HCl [Flomax] 0.4 mg PO DAILY #7 cap.er.24h Ketorolac Tromethamine [Toradol] 10 mg PO Q8H PRN #12 tablet PRN Reason: pain - Follow up/Referral Referrals: Aishwarya Ku MD [Primary Care Provider] - Can Iniguez MD [Staff Physician] - - Patient Discharge Instructions Patient Printed Discharge Instructions: DI for Kidney Stones Additional Instructions: Your CAT scan shows kidney stone which is now blocking your ureter. Your blood work is normal. Your blood in the urine is likely caused by a passed kidney stone. Take prescribed medication as needed for pain and kidney stone. Follow- up with your urologist on Saturday as discussed. Continue with antibiotics for l foot cellulitis and soak foot in [place] salt water as discussed to help with swelling - Post Discharge Activity
[2019-10-23 19:07] VITALS: BP 136/76; PULSE 88; TEMP 98.5
== END 2019-10-23 19:07 | disposition home or self-care (01) ==
LOC: JER 16:14
DX: N20.0 Calculus of kidney (principal); L03.115 Cellulitis of right lower limb
CPT/HCPCS: 36415; 74176-TC; 80048; 81003; 84703; 85025; 87086; 99284-25

== ENCOUNTER 2020-02-25 09:38 | Emergency (ER) | payer SELFPAY ==
[2020-02-25 09:45] VITALS: BP 120/77; PULSE 84; TEMP 98.2; BMI 305.5
== END 2020-02-25 11:34 | disposition home or self-care (01) ==
LOC: JER 09:38
DX: J06.9 Acute upper respiratory infection, unspecified (principal)
CPT/HCPCS: 99283-25; C9803; U0003

== ENCOUNTER 2021-10-02 14:00 | Emergency (ER) | payer OTHER ==
[2021-10-02 14:33] VITALS: BP 132/82; PULSE 89; TEMP 99; BMI 34.5
[2021-10-02] MEDS ORDERED: KETOROLAC TROMETHAMINE 30 MG/1 ML VIAL IM ONE (18:09)
[2021-10-02] MEDS ORDERED: ALBUTEROL SO4 2.5/IPRATROPIUM 0.5 INH SOL 3 ML VIAL.NEB. NEB ONE ×2 (18:09→18:28)
[2021-10-02] MEDS ORDERED: DEXAMETHASONE SOD PHOSPHATE 10 MG/1 ML VIAL IM ONE (18:09)
[2021-10-02] MEDS ORDERED: DEXAMETHASONE SOD PHOSPHATE 10 MG/1 ML VIAL ONE (18:29)
[2021-10-02] MEDS ORDERED: KETOROLAC TROMETHAMINE 30 MG/1 ML VIAL ONE (18:29)
== END 2021-10-02 20:26 | disposition home or self-care (01) ==
LOC: JER 14:00
PROC: 3E023GC Introduction of Other Therapeutic Substance into Muscle, Percutaneous Approach (ICD-10-PCS; principal; 2021-10-02)
PROC: 3E0F7GC Introduction of Other Therapeutic Substance into Respiratory Tract, Via Natural or Artificial Opening (ICD-10-PCS; 2021-10-02)
DX: U07.1 COVID-19 (principal); M94.0 Chondrocostal junction syndrome [Tietze]; J45.30 Mild persistent asthma, uncomplicated
CPT/HCPCS: 0241U-QW; 71046-TC-FY; 93005; 93010; 99285-25; J1100

== ENCOUNTER 2021-12-22 05:04 | Day surgery (SDC) | payer OTHER ==
[2021-12-20 17:16] VITALS: BMI 34.5
[2021-12-22] MEDS ORDERED: BUPIVACAINE HCL/PF 0.5% (5MG/ML) 10 ML VIAL IJ ONE (12:17)
[2021-12-22 12:55] VITALS: BP 114/75; PULSE 82; RESP 16; TEMP 97.8
== END 2021-12-22 13:40 | disposition home or self-care (01) ==
LOC: JASU-SURG 05:04
PROVIDERS: ATTEND Pain Medicine Pain Medicine
PROC: BR14YZZ Fluoroscopy of Cervical Facet Joint(s) using Other Contrast (ICD-10-PCS; 2021-12-22)
PROC: 3E0T3BZ Introduction of Anesthetic Agent into Peripheral Nerves and Plexi, Percutaneous Approach (ICD-10-PCS; principal; 2021-12-22 11:30)
DX: M47.812 Spondylosis without myelopathy or radiculopathy, cervical region (principal)
CPT/HCPCS: 76000-TC-FY; 81025

== ENCOUNTER 2022-06-03 15:44 | Emergency (ER) | payer OTHER ==
[2022-06-03 16:19] VITALS: BP 141/88; PULSE 86; RESP 18; TEMP 98.3; BMI 34.9
[2022-06-03] MEDS ORDERED: oxyCODONE HCL 5 MG TABLET PO ONE (16:43)
[2022-06-03] MEDS ORDERED: oxyCODONE HCL 5 MG TABLET ONE (17:04)
[2022-06-03] MEDS ORDERED: diazePAM 5 MG TABLET PO ONE (18:24)
[2022-06-03] MEDS ORDERED: diazePAM 5 MG TABLET ONE (18:29)
== END 2022-06-03 19:21 | disposition home or self-care (01) ==
LOC: JER 15:44
DX: M62.830 Muscle spasm of back (principal)
CPT/HCPCS: 72125-TC; 72128-TC; 84703; 99284-25

== ENCOUNTER 2022-06-17 12:05 | Inpatient (IN) | payer OTHER ==
[2022-06-17] MEDS ORDERED: SODIUM CHLORIDE 0.9% 500 ML INFUS.BAG IV ONE ×2 (13:00→17:48)
[2022-06-17] MEDS ORDERED: ACETAMINOPHEN 1000 MG/100 ML BAG IVPB ONE (13:00)
[2022-06-17] MEDS ORDERED: ONDANSETRON 4 MG/2 ML VIAL IVPUSH ONE ×2 (13:00→18:19)
[2022-06-17] MEDS ORDERED: KETOROLAC TROMETHAMINE 30 MG/1 ML VIAL IVPUSH ONE (13:00)
[2022-06-17] MEDS ORDERED: ACETAMINOPHEN INJECTION 100 ML IVPB ONE ×2 (13:15→21:55)
[2022-06-17] MEDS ORDERED: ONDANSETRON 4 MG/2 ML VIAL ONE ×4 (13:16→20:17)
[2022-06-17] MEDS ORDERED: KETOROLAC TROMETHAMINE 30 MG/1 ML VIAL ONE (13:16)
[2022-06-17] MEDS ORDERED: KETOROLAC TROMETHAMINE 15 MG/ML VIAL ONE ×2 (13:58→14:00)
[2022-06-17 14:42] LABS: HEMATOCRIT 31.1 % (32.4-45.2); HEMOGLOBIN 9.7 GM/dL (10.7-15.3); MCHC 31.2 g/dl (32.0-36.0); MEAN CELL VOLUME 63.4 fl (80-96); MEAN PLT VOLUME 7.9 fl (7.5-11.1); PLATELET COUNT 528 10^3/uL (134-434); RBC 4.91 M/mm3 (3.60-5.2); RDW 19.8 % (11.6-15.6); WHITE BLOOD COUNT 27.4 K/mm3 (4.0-10.0)
[2022-06-17 14:48] LABS: MCH 19.7 pg (25.7-33.7)
[2022-06-17 15:07] LABS: ALBUMIN 3.2 g/dl (3.4-5.0)
[2022-06-17 15:08] LABS: BLOOD UREA NITROGEN 9.9 mg/dL (7-18)
[2022-06-17 15:10] LABS: CREATININE 0.8 mg/dL (0.55-1.3)
[2022-06-17 15:12] LABS: BILIRUBIN,TOTAL 0.7 mg/dL (0.2-1); TOT PROT 7.2 g/dl (6.4-8.2)
[2022-06-17 15:40] LABS: ANISOCYTOSIS 1+; MACROCYTOSIS 0
[2022-06-17 15:57] LABS: EPI CELLS 7 /uL (0-25.1); HYALINE CASTS 4 /uL (0-3.1); PH,URINE 6.5 (5.0-8.0); URINE APPEARANCE CLOUDY; URINE BACTERIA >9,000 /uL (0-1359); URINE BILIRUBIN NEGATIVE (NEGATIVE); URINE COLOR YELLOW; URINE GLUCOSE (UA) NEGATIVE (NEGATIVE); URINE KETONE 3+ (NEGATIVE); URINE LEUK ESTERASE 2+ (NEGATIVE); URINE NITRITE POSITIVE (NEGATIVE); URINE PROTEIN 1+ (NEGATIVE); URINE RBC 642 /uL (0-23.9); URINE UROBILINOGEN 0.2 mg/dL (0.2-1.0); URINE WBC 828 /uL (0-25.8)
[2022-06-17 15:58] LABS: HCG,QUALITATIVE URINE Negative
[2022-06-17] MEDS ORDERED: CEFTRIAXONE 1 GM in DEXTROSE 5%-WATER - 100 ML IVPB ONE (17:48)
[2022-06-17] MEDS ORDERED: CEFTRIAXONE 1 GM/50 ML BAG ONE (18:12)
[2022-06-17] MEDS ORDERED: ACETAMINOPHEN 325 MG TABLET (FP) PO ONE (18:19)
[2022-06-17] MEDS ORDERED: ACETAMINOPHEN 325 MG TABLET (FP) ONE (18:28)
[2022-06-17] MEDS ORDERED: VANCOMYCIN 1 GM in D5W (PRE-DOCKED) 1,000 MG/250 ML IVPB ONE (19:13)
[2022-06-17] MEDS ORDERED: VANCOMYCIN/WATER FOR INJ (PEG) 1,000 MG/200 ML BAG IVPB ONE (19:30)
[2022-06-17] MEDS ORDERED: oxyCODONE HCL 5 MG TABLET PO PRN (20:13)
[2022-06-17] MEDS ORDERED: ONDANSETRON 4 MG/2 ML VIAL IVPUSH PRN (20:13)
[2022-06-17] MEDS ORDERED: LACTATED RINGERS SOLUTION 1,000 ML IV SCH (20:15)
[2022-06-17] MEDS ORDERED: PROPOFOL 20 ML ONE ×2 (20:17→20:36)
[2022-06-17] MEDS ORDERED: SUCCINYLCHOLINE CHLORIDE 200 MG/10 ML SYRINGE ONE (20:18)
[2022-06-17] MEDS ORDERED: GENTAMICIN SO4 80 MG/2 ML VIAL IVPB ONE (20:28)
[2022-06-17 20:37] LABS: INR 1.68 (0.83-1.09); PROTHROMBIN TIME (PATIENT) 19.4 SEC (9.7-13.0)
[2022-06-17] MEDS: ACETAMINOPHEN 1000 MG/100 ML BAG IVPB ONE (22:00)
[2022-06-17] MEDS: MEPERIDINE HCL 25 MG/ML VIAL IVPUSH ONE (22:00)
[2022-06-17] MEDS ORDERED: MEPERIDINE HCL 25 MG/ML VIAL ONE (22:01)
[2022-06-18] MEDS ORDERED: SODIUM CHLORIDE 500 ML IV STA (00:53)
[2022-06-18] MEDS: DEXTROSE 5%-0.45% SALINE 1,000 ML IV SCH ×2 (01:03→19:00)
[2022-06-18] MEDS: ACETAMINOPHEN 1000 MG/100 ML BAG IVPB ONE (01:03)
[2022-06-18] MEDS: MEPERIDINE HCL 25 MG/ML VIAL IVPUSH ONE (01:03)
[2022-06-18] MEDS: HYDROmorphone HCl 2 MG/ML VIAL IVPUSH PRN ×3 (01:18→19:35)
[2022-06-18] MEDS ORDERED: LACTATED RINGERS SOLUTION 1,000 ML/1,000 ML INFUS.BAG IV STA (01:59)
[2022-06-18] MEDS ORDERED: IMIPENEM/CILASTATIN SODIUM 500 MG in SODIUM CHLORIDE 100 ML IVPB SCH (03:00)
[2022-06-18] MEDS ORDERED: ONDANSETRON 4 MG/2 ML VIAL IVPUSH ONE (07:38)
[2022-06-18] MEDS ORDERED: ONDANSETRON 4 MG/2 ML VIAL ONE ×2 (07:39→12:13)
[2022-06-18 07:53] LABS: LACTIC ACID 2.4 mmol/L (0.4-2.0)
[2022-06-18 07:57] LABS: EPI CELLS 29 /uL (0-25.1); HYALINE CASTS 14 /uL (0-3.1); PH,URINE 5.5 (5.0-8.0); URINE APPEARANCE CLOUDY; URINE BACTERIA 21 /uL (0-1359); URINE BILIRUBIN NEGATIVE (NEGATIVE); URINE COLOR ORANGE; URINE GLUCOSE (UA) 1+ (NEGATIVE); URINE KETONE 1+ (NEGATIVE); URINE LEUK ESTERASE 1+ (NEGATIVE); URINE NITRITE NEGATIVE (NEGATIVE); URINE PROTEIN 3+ (NEGATIVE); URINE RBC 15728 /uL (0-23.9); URINE WBC 308 /uL (0-25.8)
[2022-06-18] MEDS ORDERED: VANCOMYCIN HCL 1,500 MG in DEXTROSE 5%-WATER - 250 ML IVPB SCH (08:00)
[2022-06-18] MEDS ORDERED: VANCOMYCIN PREMIX 1.5 GM 1,500 MG/300 ML BAG IVPB SCH (08:00)
[2022-06-18] MEDS ORDERED: LACTATED RINGERS SOLUTION 1000 ML INFUS.BAG IV ONE (08:15)
[2022-06-18] MEDS ORDERED: MIDAZOLAM HCL 2 MG/2 ML SINGLE DOSE VIAL IVPUSH ONE (08:29)
[2022-06-18 09:11] LABS: HEMATOCRIT 23.8 % (32.4-45.2); HEMOGLOBIN 7.1 GM/dL (10.7-15.3); MEAN CELL VOLUME 63.2 fl (80-96); MEAN PLT VOLUME 8.4 fl (7.5-11.1); PLATELET COUNT 356 10^3/uL (134-434); RBC 3.76 M/mm3 (3.60-5.2); RDW 19.9 % (11.6-15.6)
[2022-06-18 09:13] LABS: MCH 18.9 pg (25.7-33.7)
[2022-06-18 09:14] LABS: WHITE BLOOD COUNT 38.3 K/mm3 (4.0-10.0)
[2022-06-18 09:17] LABS: CHLORIDE 114 mmol/L (98-107); SODIUM 141 mmol/L (136-145)
[2022-06-18 09:20] LABS: ANION GAP 7 MMOL/L (8-16); BLOOD UREA NITROGEN 11.5 mg/dL (7-18); CO2 20 mmol/L (21-32); GLUCOSE,RANDOM 148 mg/dL (74-106)
[2022-06-18 09:23] LABS: CREATININE 0.9 mg/dL (0.55-1.3); SGOT/AST 35 U/L (15-37); SGPT/ALT 23 U/L (13-61)
[2022-06-18 09:25] LABS: BILIRUBIN,TOTAL 0.4 mg/dL (0.2-1); TOT PROT 5.3 g/dl (6.4-8.2)
[2022-06-18 09:26] LABS: ALK PHOS 62 U/L (45-117)
[2022-06-18 09:27] LABS: ALBUMIN 2.2 g/dl (3.4-5.0); CALCIUM 6.8 mg/dL (8.5-10.1)
[2022-06-18] MEDS ORDERED: NOREPINEPHRINE 0.9 % NACL 8 MG/250 ML BAG IVPB SCH (09:45)
[2022-06-18] MEDS: MUPIROCIN 2% TOPICAL OINTMENT FOR DECOLONIZATION NS SCH ×2 (09:57→21:15)
[2022-06-18] MEDS: ALBUTEROL SO4 HFA INHALER IH PRN (09:57)
[2022-06-18 09:59] LABS: ANISOCYTOSIS 3+; MACROCYTOSIS 0
[2022-06-18] MEDS ORDERED: FLU VACC QS2022-23(6MOS UP)/PF 60 MCG/0.5 ML SYRINGE IM ONE (10:00)
[2022-06-18] MEDS ORDERED: PNEUMOC 20-VAL CONJ-DIP CRM/PF 0.5 ML SYRINGE IM ONE (10:00)
[2022-06-18] MEDS ORDERED: CEFTRIAXONE 1 GM in DEXTROSE 5%-WATER - 50 ML IVPB SCH (10:00)
[2022-06-18 11:14] LABS: HEMATOCRIT 22.6 % (32.4-45.2); MCHC 30.8 g/dl (32.0-36.0); MEAN CELL VOLUME 64.4 fl (80-96); MEAN PLT VOLUME 7.8 fl (7.5-11.1); PLATELET COUNT 342 10^3/uL (134-434); RBC 3.51 M/mm3 (3.60-5.2); RDW 19.8 % (11.6-15.6)
[2022-06-18 11:15] LABS: MCH 19.9 pg (25.7-33.7)
[2022-06-18 11:16] LABS: WHITE BLOOD COUNT 37.8 K/mm3 (4.0-10.0)
[2022-06-18 11:37] LABS: ALBUMIN 2.1 g/dl (3.4-5.0); BLOOD UREA NITROGEN 10.6 mg/dL (7-18); MAGNESIUM 1.3 mg/dL (1.8-2.4)
[2022-06-18 11:40] LABS: ANISOCYTOSIS 3+; CREATININE 0.8 mg/dL (0.55-1.3); MACROCYTOSIS 0; OVALOCYTE 1+; TEAR DROP CELLS 1+
[2022-06-18 11:42] LABS: BILIRUBIN,TOTAL 0.2 mg/dL (0.2-1); TOT PROT 5.2 g/dl (6.4-8.2)
[2022-06-18 11:45] LABS: N-TERMINAL BNP 2493.7 pg/ml (5-125)
[2022-06-18 12:07] LABS: CALCIUM 6.8 mg/dL (8.5-10.1)
[2022-06-18] MEDS ORDERED: ONDANSETRON 4 MG/2 ML VIAL IVPB ONE (12:12)
[2022-06-18] MEDS ORDERED: PANTOPRAZOLE SODIUM 40 MG VIAL IVPUSH ONE (12:48)
[2022-06-18] MEDS: PIPERACILLIN/TAZOB 3.375 GM 3.375 GM in DEXTROSE 5%-WATER - 50 ML IVPB SCH ×2 (13:17→17:46)
[2022-06-18] MEDS: ALBUTEROL SO4 2.5/IPRATROPIUM 0.5 INH SOL 3 ML VIAL.NEB. NEB SCH ×3 (13:37→20:05)
[2022-06-18] MEDS: HEPARIN NA (PORCINE) 5,000 UNITS/ML 1ML VIAL SQ SCH ×2 (15:22→23:01)
[2022-06-18] MEDS: ONDANSETRON 4 MG/2 ML VIAL IVPUSH PRN (19:22)
[2022-06-18 19:25] LABS: HEMATOCRIT 23.6 % (32.4-45.2); MCHC 29.6 g/dl (32.0-36.0); MEAN CELL VOLUME 63.5 fl (80-96); MEAN PLT VOLUME 7.7 fl (7.5-11.1); PLATELET COUNT 393 10^3/uL (134-434); RBC 3.71 M/mm3 (3.60-5.2)
[2022-06-18 19:31] LABS: MCH 18.8 pg (25.7-33.7)
[2022-06-18 19:36] LABS: WHITE BLOOD COUNT 42.1 K/mm3 (4.0-10.0)
[2022-06-18 19:46] LABS: LACTIC ACID 3.2 mmol/L (0.4-2.0)
[2022-06-18 20:13] LABS: ANISOCYTOSIS 3+; MACROCYTOSIS 0; OVALOCYTE 2+; PLATELET ESTIMATE NORMAL
[2022-06-18] MEDS ORDERED: LACTATED RINGERS SOLUTION 1,000 ML/1,000 ML INFUS.BAG IV ONE (20:24)
[2022-06-18] MEDS ORDERED: MAGNESIUM SULF 50% (8.12 MEQ/2 ML-1 GM VIAL) IVPB ONE (20:24)
[2022-06-18] MEDS: CHLORHEXIDINE GLUCONATE 4% CLEANSER FOR DECOLONIZATION TP SCH (21:11)
[2022-06-19] MEDS: PIPERACILLIN/TAZOB 3.375 GM 3.375 GM in DEXTROSE 5%-WATER - 50 ML IVPB SCH ×3 (01:07→17:01)
[2022-06-19] MEDS: ONDANSETRON 4 MG/2 ML VIAL IVPUSH PRN ×4 (01:09→19:35)
[2022-06-19] MEDS ORDERED: ACETAMINOPHEN 1000 MG/100 ML BAG IVPB ONE (02:02)
[2022-06-19] MEDS: TAMSULOSIN HCL 0.4 MG CAP PO SCH ×2 (07:31→07:33)
[2022-06-19 08:05] LABS: CHLORIDE 112 mmol/L (98-107); SODIUM 140 mmol/L (136-145)
[2022-06-19] MEDS: ACETAMINOPHEN 1000 MG/100 ML BAG IVPB PRN ×2 (08:08→16:30)
[2022-06-19] MEDS: DEXTROSE 5%-0.45% SALINE 1,000 ML IV SCH (08:09)
[2022-06-19 08:12] LABS: LACTIC ACID 2.1 mmol/L (0.4-2.0)
[2022-06-19 08:16] LABS: ANION GAP 6 MMOL/L (8-16); BLOOD UREA NITROGEN 8.3 mg/dL (7-18); CO2 21 mmol/L (21-32); GLUCOSE,RANDOM 100 mg/dL (74-106)
[2022-06-19] MEDS: ALBUTEROL SO4 2.5/IPRATROPIUM 0.5 INH SOL 3 ML VIAL.NEB. NEB SCH ×4 (08:18→20:38)
[2022-06-19 08:19] LABS: CREATININE 0.7 mg/dL (0.55-1.3); PHOSPHOROUS 1.9 mg/dL (2.5-4.9); SGOT/AST 20 U/L (15-37); SGPT/ALT 19 U/L (13-61)
[2022-06-19 08:20] LABS: BILIRUBIN,TOTAL 0.2 mg/dL (0.2-1); TOT PROT 4.9 g/dl (6.4-8.2)
[2022-06-19 08:21] LABS: ALK PHOS 64 U/L (45-117)
[2022-06-19 08:25] LABS: HEMATOCRIT 20.9 % (32.4-45.2); MCHC 31.8 g/dl (32.0-36.0); MEAN CELL VOLUME 61.8 fl (80-96); PLATELET COUNT 333 10^3/uL (134-434); RBC 3.38 M/mm3 (3.60-5.2); RDW 19.7 % (11.6-15.6)
[2022-06-19 08:26] LABS: MCH 19.7 pg (25.7-33.7)
[2022-06-19 08:31] LABS: CALCIUM 6.9 mg/dL (8.5-10.1)
[2022-06-19 09:05] LABS: WHITE BLOOD COUNT 30.9 K/mm3 (4.0-10.0)
[2022-06-19 09:06] LABS: HEMOGLOBIN 6.6 GM/dL (10.7-15.3)
[2022-06-19] MEDS ORDERED: ONDANSETRON 4 MG/2 ML VIAL IVPUSH PRN (09:24)
[2022-06-19] MEDS: MUPIROCIN 2% TOPICAL OINTMENT FOR DECOLONIZATION NS SCH ×2 (09:25→22:27)
[2022-06-19] MEDS ORDERED: TRIMETHOBENZAMIDE HCL 200MG/2ML INJ IM PRN (09:39)
[2022-06-19 09:57] LABS: RETICULOCYTES 0.68 % (0.5-1.5)
[2022-06-19] MEDS: HEPARIN NA (PORCINE) 5,000 UNITS/ML 1ML VIAL SQ SCH ×2 (10:04→21:22)
[2022-06-19] MEDS: BUDESONIDE/FORMETEROL FUMARATE 80/4.5 mcg INHALER IH SCH ×2 (11:20→22:27)
[2022-06-19] MEDS: PANTOPRAZOLE SODIUM 40 MG VIAL IVPUSH SCH (12:53)
[2022-06-19] MEDS: ALBUTEROL SO4 HFA INHALER IH PRN (13:00)
[2022-06-19 15:35] LABS: IRON SERUM 7 ug/dL (50-175); TOTAL IRON BINDING CAPACITY 232 ug/dL (250-450)
[2022-06-19] MEDS ORDERED: SODIUM PHOSPHATE - 30 MM in DEXTROSE 5%-WATER - 250 ML IVPB ONE (15:35)
[2022-06-19] MEDS ORDERED: FUROSEMIDE 40 MG/4 ML INJECTABLE VIAL IVPUSH ONE (17:21)
[2022-06-19] MEDS ORDERED: LIDOCAINE 5% TOPICAL PATCH TP SCH (18:15)
[2022-06-19] MEDS: HYDROmorphone HCl 2 MG/ML VIAL IVPUSH PRN (19:35)
[2022-06-19 21:17] LABS: BASO % 0.2 % (0-2.0); EOS % 0.1 % (0-4.5); HEMATOCRIT 25.8 % (32.4-45.2); HEMOGLOBIN 8.2 GM/dL (10.7-15.3); LYMPH % 6.1 % (8-40); MCH 20.1 pg (25.7-33.7); MCHC 31.7 g/dl (32.0-36.0); MEAN CELL VOLUME 63.5 fl (80-96); MEAN PLT VOLUME 8.3 fl (7.5-11.1); MONO % 7.3 % (3.8-10.2); NEUT % 86.3 % (42.8-82.8); PLATELET COUNT 363 10^3/uL (134-434); RBC 4.06 M/mm3 (3.60-5.2); RDW 22.2 % (11.6-15.6); WHITE BLOOD COUNT 27.3 K/mm3 (4.0-10.0)
[2022-06-19 21:31] LABS: ADD RBC MORPHOLOGY YES
[2022-06-19 22:00] LABS: ANISOCYTOSIS 3+; MACROCYTOSIS 0; TARGET CELLS 2+; TEAR DROP CELLS 1+
[2022-06-19] MEDS ORDERED: LIDOCAINE PATCH REMOVAL MC SCH (22:00)
[2022-06-19] MEDS: CHLORHEXIDINE GLUCONATE 4% CLEANSER FOR DECOLONIZATION TP SCH (22:27)
[2022-06-20] MEDS: PIPERACILLIN/TAZOB 3.375 GM 3.375 GM in DEXTROSE 5%-WATER - 50 ML IVPB SCH ×3 (01:05→17:05)
[2022-06-20] MEDS: ACETAMINOPHEN 1000 MG/100 ML BAG IVPB PRN ×3 (01:34→17:51)
[2022-06-20 07:46] LABS: HEMATOCRIT 24.6 % (32.4-45.2); MCHC 32.6 g/dl (32.0-36.0); MEAN CELL VOLUME 64.2 fl (80-96); MEAN PLT VOLUME 8.1 fl (7.5-11.1); PLATELET COUNT 398 10^3/uL (134-434); RBC 3.83 M/mm3 (3.60-5.2); RDW 21.5 % (11.6-15.6); WHITE BLOOD COUNT 20.1 K/mm3 (4.0-10.0)
[2022-06-20 08:04] LABS: CHLORIDE 108 mmol/L (98-107); SODIUM 141 mmol/L (136-145)
[2022-06-20 08:07] LABS: ALBUMIN 2.2 g/dl (3.4-5.0); ANION GAP 8 MMOL/L (8-16); BLOOD UREA NITROGEN 5.4 mg/dL (7-18); CO2 25 mmol/L (21-32); GLUCOSE,RANDOM 73 mg/dL (74-106); MAGNESIUM 1.5 mg/dL (1.8-2.4)
[2022-06-20 08:10] LABS: CREATININE 0.7 mg/dL (0.55-1.3); PHOSPHOROUS 2.6 mg/dL (2.5-4.9); SGOT/AST 29 U/L (15-37); SGPT/ALT 27 U/L (13-61)
[2022-06-20 08:11] LABS: TOT PROT 5.6 g/dl (6.4-8.2)
[2022-06-20 08:12] LABS: BILIRUBIN,TOTAL 0.5 mg/dL (0.2-1)
[2022-06-20 08:13] LABS: ALK PHOS 71 U/L (45-117)
[2022-06-20] MEDS: ALBUTEROL SO4 2.5/IPRATROPIUM 0.5 INH SOL 3 ML VIAL.NEB. NEB SCH ×4 (08:25→20:36)
[2022-06-20 08:31] LABS: CALCIUM 6.9 mg/dL (8.5-10.1)
[2022-06-20 09:22] LABS: ANISOCYTOSIS 3+; MACROCYTOSIS 0; ROULEAU 1+
[2022-06-20] MEDS: PANTOPRAZOLE SODIUM 40 MG VIAL IVPUSH SCH (09:39)
[2022-06-20] MEDS: MUPIROCIN 2% TOPICAL OINTMENT FOR DECOLONIZATION NS SCH ×2 (09:40→21:09)
[2022-06-20] MEDS: TAMSULOSIN HCL 0.4 MG CAP PO SCH (09:40)
[2022-06-20] MEDS: HEPARIN NA (PORCINE) 5,000 UNITS/ML 1ML VIAL SQ SCH ×2 (09:40→21:08)
[2022-06-20] MEDS: DEXTROSE 5%-0.45% SALINE 1,000 ML IV SCH (09:41)
[2022-06-20] MEDS: BUDESONIDE/FORMETEROL FUMARATE 80/4.5 mcg INHALER IH SCH ×3 (09:41→21:11)
[2022-06-20] MEDS ORDERED: FUROSEMIDE 40 MG/4 ML INJECTABLE VIAL IVPUSH ONE (10:30)
[2022-06-20] MEDS ORDERED: CALCIUM GLUC IN NACL, ISO-OSM 1 GM/50 ML BAG IVPB ONE (12:48)
[2022-06-20] MEDS ORDERED: MAGNESIUM SULF 50% (8.12 MEQ/2 ML-1 GM VIAL) IVPB ONE (12:48)
[2022-06-20] MEDS: KCL 10 MEQ IVPB 10 MEQ/100 ML INFUS.BAG IVPB SCH ×3 (14:26→16:53)
[2022-06-20] MEDS: ALBUTEROL SO4 HFA INHALER IH PRN (15:05)
[2022-06-20] MEDS: CHLORHEXIDINE GLUCONATE 4% CLEANSER FOR DECOLONIZATION TP SCH (21:09)
[2022-06-21] MEDS: ACETAMINOPHEN 1000 MG/100 ML BAG IVPB PRN ×3 (01:57→17:23)
[2022-06-21] MEDS: PIPERACILLIN/TAZOB 3.375 GM 3.375 GM in DEXTROSE 5%-WATER - 50 ML IVPB SCH (02:14)
[2022-06-21 08:24] LABS: BASO % 0.8 % (0-2.0); EOS % 3.6 % (0-4.5); HEMOGLOBIN 8.3 GM/dL (10.7-15.3); LYMPH % 19.8 % (8-40); MCH 21.3 pg (25.7-33.7); MCHC 33.1 g/dl (32.0-36.0); MEAN CELL VOLUME 64.4 fl (80-96); MEAN PLT VOLUME 8.4 fl (7.5-11.1); MONO % 13.7 % (3.8-10.2); NEUT % 62.1 % (42.8-82.8); PLATELET COUNT 437 10^3/uL (134-434); RBC 3.88 M/mm3 (3.60-5.2); RDW 22.4 % (11.6-15.6); WHITE BLOOD COUNT 9.1 K/mm3 (4.0-10.0)
[2022-06-21 08:55] LABS: ALBUMIN 2.3 g/dl (3.4-5.0)
[2022-06-21] MEDS: ALBUTEROL SO4 2.5/IPRATROPIUM 0.5 INH SOL 3 ML VIAL.NEB. NEB SCH ×4 (08:55→20:21)
[2022-06-21 08:56] LABS: BLOOD UREA NITROGEN 6.9 mg/dL (7-18); MAGNESIUM 1.8 mg/dL (1.8-2.4)
[2022-06-21 08:59] LABS: CREATININE 0.7 mg/dL (0.55-1.3)
[2022-06-21 09:01] LABS: BILIRUBIN,TOTAL 0.3 mg/dL (0.2-1); TOT PROT 5.7 g/dl (6.4-8.2)
[2022-06-21 09:32] LABS: ANISOCYTOSIS 2+; MACROCYTOSIS 0; OVALOCYTE 2+; TARGET CELLS 2+; TEAR DROP CELLS 2+
[2022-06-21] MEDS: HEPARIN NA (PORCINE) 5,000 UNITS/ML 1ML VIAL SQ SCH ×2 (09:51→21:58)
[2022-06-21] MEDS: CEFTRIAXONE 2 GM in DEXTROSE 5%-WATER 100 ML IVPB SCH (09:52)
[2022-06-21] MEDS: PANTOPRAZOLE SODIUM 40 MG VIAL IVPUSH SCH (09:54)
[2022-06-21] MEDS: TAMSULOSIN HCL 0.4 MG CAP PO SCH (09:56)
[2022-06-21] MEDS: BUDESONIDE/FORMETEROL FUMARATE 80/4.5 mcg INHALER IH SCH ×2 (09:56→21:58)
[2022-06-21] MEDS: MUPIROCIN 2% TOPICAL OINTMENT FOR DECOLONIZATION NS SCH ×2 (09:57→21:58)
[2022-06-21 11:26] VITALS: BMI 35.9
[2022-06-21] MEDS ORDERED: SODIUM CHLORIDE NASAL SPRAY 44 ML BOTTLE NS PRN (11:57)
[2022-06-21] MEDS: FLUTICASONE PROP 0.05% 16 GM NASAL SPRAY NS SCH ×2 (14:49→21:58)
[2022-06-21] MEDS: CHLORHEXIDINE GLUCONATE 4% CLEANSER FOR DECOLONIZATION TP SCH (21:58)
[2022-06-22] MEDS: ACETAMINOPHEN 1000 MG/100 ML BAG IVPB PRN ×2 (06:08→14:55)
[2022-06-22 06:52] LABS: HEMATOCRIT 24.6 % (32.4-45.2); HEMOGLOBIN 8.1 GM/dL (10.7-15.3); MCH 21.2 pg (25.7-33.7); MEAN CELL VOLUME 64.3 fl (80-96); MEAN PLT VOLUME 7.5 fl (7.5-11.1); PLATELET COUNT 418 10^3/uL (134-434); RBC 3.82 M/mm3 (3.60-5.2); RDW 22.7 % (11.6-15.6); WHITE BLOOD COUNT 9.2 K/mm3 (4.0-10.0)
[2022-06-22] MEDS: ALBUTEROL SO4 2.5/IPRATROPIUM 0.5 INH SOL 3 ML VIAL.NEB. NEB SCH ×4 (07:20→20:42)
[2022-06-22 07:23] LABS: CALCIUM 7.9 mg/dL (8.5-10.1)
[2022-06-22 07:24] LABS: ALBUMIN 2.2 g/dl (3.4-5.0); BLOOD UREA NITROGEN 6.4 mg/dL (7-18)
[2022-06-22 07:27] LABS: CREATININE 0.5 mg/dL (0.55-1.3)
[2022-06-22 07:28] LABS: BILIRUBIN,TOTAL 0.7 mg/dL (0.2-1); TOT PROT 5.5 g/dl (6.4-8.2)
[2022-06-22] MEDS: PANTOPRAZOLE SODIUM 40 MG VIAL IVPUSH SCH (09:03)
[2022-06-22] MEDS: CEFTRIAXONE 2 GM in DEXTROSE 5%-WATER 100 ML IVPB SCH (09:03)
[2022-06-22] MEDS: HEPARIN NA (PORCINE) 5,000 UNITS/ML 1ML VIAL SQ SCH ×2 (09:03→21:32)
[2022-06-22] MEDS: TAMSULOSIN HCL 0.4 MG CAP PO SCH (09:03)
[2022-06-22 09:58] LABS: ANISOCYTOSIS 3+; MACROCYTOSIS 0
[2022-06-22] MEDS: MUPIROCIN 2% TOPICAL OINTMENT FOR DECOLONIZATION NS SCH ×2 (10:06→21:32)
[2022-06-22] MEDS: BUDESONIDE/FORMETEROL FUMARATE 80/4.5 mcg INHALER IH SCH ×2 (10:10→21:32)
[2022-06-22] MEDS: FLUTICASONE PROP 0.05% 16 GM NASAL SPRAY NS SCH ×2 (10:10→21:32)
[2022-06-22] MEDS: CHLORHEXIDINE GLUCONATE 4% CLEANSER FOR DECOLONIZATION TP SCH (21:32)
[2022-06-23] MEDS ORDERED: TRIMETHOBENZAMIDE HCL 200MG/2ML INJ IM PRN (07:51)
[2022-06-23] MEDS ORDERED: ONDANSETRON 4 MG/2 ML VIAL IVPUSH PRN (07:51)
[2022-06-23] MEDS ORDERED: ALBUTEROL SO4 HFA INHALER IH PRN (07:51)
[2022-06-23] MEDS ORDERED: IRON SUCROSE INJECTION 200 MG in SODIUM CHLORIDE 90 ML IVPB ONE (08:23)
[2022-06-23] MEDS: ALBUTEROL SO4 2.5/IPRATROPIUM 0.5 INH SOL 3 ML VIAL.NEB. NEB SCH ×4 (08:42→20:18)
[2022-06-23] MEDS: TAMSULOSIN HCL 0.4 MG CAP PO SCH (08:54)
[2022-06-23] MEDS: CEFTRIAXONE 2 GM in DEXTROSE 5%-WATER 100 ML IVPB SCH (09:34)
[2022-06-23] MEDS: PANTOPRAZOLE SODIUM 40 MG VIAL IVPUSH SCH (09:35)
[2022-06-23] MEDS: HEPARIN NA (PORCINE) 5,000 UNITS/ML 1ML VIAL SQ SCH ×2 (09:35→22:30)
[2022-06-23] MEDS: FLUTICASONE PROP 0.05% 16 GM NASAL SPRAY NS SCH (09:37)
[2022-06-23] MEDS: BUDESONIDE/FORMETEROL FUMARATE 80/4.5 mcg INHALER IH SCH (09:37)
[2022-06-23] MEDS ORDERED: MUPIROCIN 2% TOPICAL OINTMENT FOR DECOLONIZATION NS SCH (10:00)
[2022-06-23] MEDS ORDERED: ACETAMINOPHEN 325 MG TABLET (FP) PO PRN (19:53)
[2022-06-23] MEDS ORDERED: CHLORHEXIDINE GLUCONATE 4% CLEANSER FOR DECOLONIZATION TP SCH (22:00)
[2022-06-24] MEDS: FLUTICASONE PROP 0.05% 16 GM NASAL SPRAY NS SCH ×2 (01:43→09:17)
[2022-06-24] MEDS: BUDESONIDE/FORMETEROL FUMARATE 80/4.5 mcg INHALER IH SCH ×2 (01:43→09:17)
[2022-06-24 03:17] VITALS: RESP 20
[2022-06-24] MEDS: ALBUTEROL SO4 2.5/IPRATROPIUM 0.5 INH SOL 3 ML VIAL.NEB. NEB SCH ×2 (08:07→12:13)
[2022-06-24 09:11] LABS: HEMATOCRIT 28.2 % (32.4-45.2); HEMOGLOBIN 9.2 GM/dL (10.7-15.3); MCH 20.6 pg (25.7-33.7); MCHC 32.5 g/dl (32.0-36.0); MEAN CELL VOLUME 63.6 fl (80-96); MEAN PLT VOLUME 7.4 fl (7.5-11.1); PLATELET COUNT 553 10^3/uL (134-434); RBC 4.44 M/mm3 (3.60-5.2); RDW 22.7 % (11.6-15.6); WHITE BLOOD COUNT 9.1 K/mm3 (4.0-10.0)
[2022-06-24] MEDS: TAMSULOSIN HCL 0.4 MG CAP PO SCH (09:16)
[2022-06-24] MEDS: PANTOPRAZOLE SODIUM 40 MG VIAL IVPUSH SCH ×2 (09:16→09:33)
[2022-06-24] MEDS: HEPARIN NA (PORCINE) 5,000 UNITS/ML 1ML VIAL SQ SCH ×2 (09:16→09:22)
[2022-06-24] MEDS: CEFTRIAXONE 2 GM in DEXTROSE 5%-WATER 100 ML IVPB SCH ×2 (09:16→09:33)
[2022-06-24 09:29] LABS: CALCIUM 8.5 mg/dL (8.5-10.1)
[2022-06-24 09:30] LABS: BLOOD UREA NITROGEN 3.3 mg/dL (7-18)
[2022-06-24 09:33] LABS: CREATININE 0.5 mg/dL (0.55-1.3)
[2022-06-24 10:57] VITALS: BP 149/93; PULSE 99; TEMP 98.7
[2022-06-24] MEDS ORDERED: CEFUROXIME AXETIL 500 MG TABLET PO SCH (11:45)
[2022-06-24] MEDS ORDERED: PANTOPRAZOLE 40 MG TABLET PO SCH (15:00)
== END 2022-06-24 12:53 | disposition home or self-care (01) | DRG 853 ==
LOC: JER 12:05 → JERBED 17:56 → JICU 23:11 → J5S 06-22 22:28
PROVIDERS: ADMIT Internal Medicine; ATTEND Family Medicine
PROC: 0T768DZ Dilation of Right Ureter with Intraluminal Device, Via Natural or Artificial Opening Endoscopic (ICD-10-PCS; principal; 2022-06-17 20:00)
DX: A41.89 Other specified sepsis (principal); R65.21 Severe sepsis with septic shock; J18.9 Pneumonia, unspecified organism; E87.20 Acidosis, unspecified; J98.11 Atelectasis; N13.6 Pyonephrosis; I24.8 Other forms of acute ischemic heart disease; D72.829 Elevated white blood cell count, unspecified; J45.909 Unspecified asthma, uncomplicated; R07.89 Other chest pain; R00.0 Tachycardia, unspecified; D64.9 Anemia, unspecified; N92.0 Excessive and frequent menstruation with regular cycle
CPT/HCPCS: 0241U-QW; 36415; 36430; 71045-TC-FY; 74177-TC; 76000-TC-FY; 76775-TC; 80048; 80053; 81003; 82272; 82728; 83540; 83550; 83605; 83690; 83735; 83880; 84100; 84484; 84703; 85025; 85027; 85045; 85379; 85384; 85610; 86850; 86900; 86901; 86922; 87040; 87086; 87186; 93005; 93010; 93306-TC; 94640; 94760; 97116-GP; 97162-GP; 99285-25; C2617; J1644; J1756; P9058; Q9967

== ENCOUNTER 2022-07-13 04:30 | Day surgery (SDC) | payer OTHER ==
[2022-07-06 14:03] VITALS: BMI 34.5
[2022-07-13] MEDS ORDERED: MIDAZOLAM HCL 2 MG/2 ML SINGLE DOSE VIAL ONE (12:33)
[2022-07-13] MEDS ORDERED: PROPOFOL 40 ML ONE (12:35)
[2022-07-13] MEDS ORDERED: ALBUTEROL SO4 HFA INHALER IH ONE (12:41)
[2022-07-13] MEDS ORDERED: ceFAZolin SODIUM 1 GM VIAL IVPB ONE (12:46)
[2022-07-13] MEDS ORDERED: ceFAZolin SODIUM 1 GM VIAL ONE (12:47)
[2022-07-13] MEDS ORDERED: ONDANSETRON 4 MG/2 ML VIAL ONE (12:48)
[2022-07-13] MEDS ORDERED: DEXAMETHASONE SOD PHOSPHATE 4 MG/1 ML VIAL ONE (12:48)
[2022-07-13] MEDS ORDERED: ONDANSETRON 4 MG/2 ML VIAL IVPUSH PRN (13:33)
[2022-07-13] MEDS ORDERED: ACETAMINOPHEN 1000 MG/100 ML BAG IVPB ONE (13:33)
[2022-07-13 15:23] VITALS: BP 128/76; PULSE 80; RESP 20; TEMP 97.5
[2022-07-19 21:11] LABS: CA OXALATE MONOHYDR. 80 % (.); SIZE 2x2 mm (.); WEIGHT 7 mg (.)
== END 2022-07-13 15:30 | disposition home or self-care (01) ==
LOC: JASU-SURG 04:30
PROVIDERS: ATTEND Urology
PROC: 0TC68ZZ Extirpation of Matter from Right Ureter, Via Natural or Artificial Opening Endoscopic (ICD-10-PCS; principal; 2022-07-13 13:00)
PROC: 0T768DZ Dilation of Right Ureter with Intraluminal Device, Via Natural or Artificial Opening Endoscopic (ICD-10-PCS; 2022-07-13 13:00)
DX: N13.2 Hydronephrosis with renal and ureteral calculous obstruction (principal)
CPT/HCPCS: 36415; 76000-TC-FY; 81025; 82360; 88300-TC; 94760; C1758; C2617

== ENCOUNTER 2022-11-24 16:09 | Emergency (ER) | payer OTHER ==
[2022-11-24 16:19] VITALS: BP 117/80; PULSE 88; RESP 20; TEMP 98.2; BMI 35.3
[2022-11-24] MEDS ORDERED: KETOROLAC TROMETHAMINE 30 MG/1 ML VIAL IM ONE (17:12)
[2022-11-24] MEDS ORDERED: ACETAMINOPHEN 500 MG TABLET (FP) PO ONE (17:12)
[2022-11-24] MEDS ORDERED: ACETAMINOPHEN 500 MG TABLET (FP) ONE (17:16)
[2022-11-24] MEDS ORDERED: KETOROLAC TROMETHAMINE 15 MG/ML VIAL ONE (17:16)
== END 2022-11-24 18:22 | disposition home or self-care (01) ==
LOC: JERFT 16:09
PROC: 3E0233Z Introduction of Anti-inflammatory into Muscle, Percutaneous Approach (ICD-10-PCS; principal; 2022-11-24)
DX: M25.532 Pain in left wrist (principal); M67.832 Other specified disorders of synovium, left wrist
CPT/HCPCS: 99284-25

== ENCOUNTER 2023-03-04 08:22 | Emergency (ER) | payer OTHER ==
[2023-03-04 08:34] VITALS: RESP 18; BMI 35.0
[2023-03-04] MEDS ORDERED: SODIUM CHLORIDE 1,000 ML IV STA (09:12)
[2023-03-04] MEDS ORDERED: ACETAMINOPHEN 1000 MG/100 ML BAG IVPB ONE (09:12)
[2023-03-04] MEDS ORDERED: ACETAMINOPHEN INJECTION 100 ML IVPB ONE (09:28)
[2023-03-04 10:17] LABS: BASO % 1.5 % (0-2.0); EOS % 4.9 % (0-4.5); HEMATOCRIT 38.1 % (32.4-45.2); HEMOGLOBIN 12.1 GM/dL (10.7-15.3); LYMPH % 35.2 % (8-40); MCHC 31.7 g/dl (32.0-36.0); MEAN CELL VOLUME 75.6 fl (80-96); MEAN PLT VOLUME 7.6 fl (7.5-11.1); MONO % 11.2 % (3.8-10.2); NEUT % 47.2 % (42.8-82.8); PLATELET COUNT 441 10^3/uL (134-434); RBC 5.03 M/mm3 (3.60-5.2); RDW 16.6 % (11.6-15.6)
[2023-03-04 10:25] LABS: POTASSIUM 4.5 mmol/L (3.5-5.1)
[2023-03-04 10:26] LABS: CALCIUM 9.3 mg/dL (8.5-10.1)
[2023-03-04 10:27] LABS: ALBUMIN 3.3 g/dl (3.4-5.0); BLOOD UREA NITROGEN 7.8 mg/dL (7-18)
[2023-03-04 10:30] LABS: CREATININE 0.7 mg/dL (0.55-1.3)
[2023-03-04 10:32] LABS: BILIRUBIN,TOTAL 0.5 mg/dL (0.2-1); TOT PROT 7.3 g/dl (6.4-8.2)
[2023-03-04] MEDS ORDERED: ALBUTEROL SO4 2.5/IPRATROPIUM 0.5 INH SOL 3 ML VIAL.NEB. NEB ONE ×2 (11:40→11:58)
[2023-03-04 12:57] VITALS: BP 130/78; PULSE 90; TEMP 98.3
== END 2023-03-04 13:05 | disposition home or self-care (01) ==
LOC: JER 08:22
PROC: 3E033NZ Introduction of Analgesics, Hypnotics, Sedatives into Peripheral Vein, Percutaneous Approach (ICD-10-PCS; principal; 2023-03-04)
PROC: 3E0337Z Introduction of Electrolytic and Water Balance Substance into Peripheral Vein, Percutaneous Approach (ICD-10-PCS; 2023-03-04)
PROC: 3E0F7GC Introduction of Other Therapeutic Substance into Respiratory Tract, Via Natural or Artificial Opening (ICD-10-PCS; 2023-03-04)
DX: R51.9 Headache, unspecified (principal); R05.9 Cough, unspecified; R07.89 Other chest pain; J06.9 Acute upper respiratory infection, unspecified; Z20.822 Contact with and (suspected) exposure to COVID-19
CPT/HCPCS: 0241U-QW; 36415; 71046-TC-FY; 80053; 84484; 84703; 85025; 93005; 93010; 99285-25

== ENCOUNTER 2023-07-23 09:17 | Emergency (ER) | payer OTHER ==
[2023-07-23 09:32] VITALS: BP 126/86; PULSE 88; RESP 18; TEMP 97.8; BMI 36.8
[2023-07-23] MEDS ORDERED: ACETAMINOPHEN 325 MG TABLET (FP) ONE (10:47)
[2023-07-23] MEDS: ACETAMINOPHEN 500 MG TABLET (FP) PO ONE (10:49)
== END 2023-07-23 10:57 | disposition home or self-care (01) ==
LOC: JERFT 09:17
DX: M54.2 Cervicalgia (principal); R51.9 Headache, unspecified; S16.1XXA Strain of muscle, fascia and tendon at neck level, initial encounter; V49.40XA Driver injured in collision with unspecified motor vehicles in traffic accident, initial encounter; Y92.410 Unspecified street and highway as the place of occurrence of the external cause; Z20.822 Contact with and (suspected) exposure to COVID-19
CPT/HCPCS: 0241U-QW; 99283-25

== ENCOUNTER 2023-09-12 11:33 | Emergency (ER) | payer OTHER ==
[2023-09-12 11:45] VITALS: RESP 18; BMI 37.2
[2023-09-12] MEDS: LIDOCAINE 4% PATCH TP ONE (12:55)
[2023-09-12] MEDS: KETOROLAC TROMETHAMINE 30 MG/1 ML VIAL IM ONE (12:55)
[2023-09-12] MEDS ORDERED: LIDOCAINE 5% TOPICAL PATCH ONE ×2 (12:58→12:59)
[2023-09-12] MEDS ORDERED: KETOROLAC TROMETHAMINE 30 MG/1 ML VIAL ONE (12:59)
[2023-09-12] MEDS: CYCLOBENZAPRINE HCL 5 MG TABLET PO ONE (13:10)
[2023-09-12 14:20] VITALS: BP 125/84; PULSE 84; TEMP 98.8
[2023-09-12] MEDS ORDERED: LIDOCAINE PATCH REMOVAL MC ONE (22:00)
== END 2023-09-12 14:32 | disposition home or self-care (01) ==
LOC: JER 11:33
PROC: 3E0233Z Introduction of Anti-inflammatory into Muscle, Percutaneous Approach (ICD-10-PCS; principal; 2023-09-12)
DX: M54.50 Low back pain, unspecified (principal); M79.604 Pain in right leg; R20.2 Paresthesia of skin
CPT/HCPCS: 72100-TC-FY; 99284-25